=== PATIENT | female | born 1980 | race American Indian/Alaskan Native ===

== ENCOUNTER 2017-12-03 11:00 | Outpatient (CLI) | payer MEDICAID | END 2017-12-03 11:01 | disposition home or self-care (01) | LOC: SLR 11:00 | PROVIDERS: ATTEND Otolaryngology | DX: G47.30 Sleep apnea, unspecified (principal) | CPT/HCPCS: G0399 ==

== ENCOUNTER 2021-01-21 09:46 | Inpatient (IN) | payer MEDICAID, OTHER, SELFPAY ==
[2021-01-21] MEDS ORDERED: dexAMETHasone 20 MG/5 ML VIAL IV ONE (11:48)
--- NOTE | 2021-01-21 11:57 | Emergency Department Report ---
ED Shortness of Breath HPI - General Chief Complaint: Dyspnea/Respdistress Stated Complaint: SHORTNESS OF BREATH Time Seen by Provider: 01/21/21 11:47 Source: patient Mode of arrival: Ambulatory Limitations: No Limitations - History of Present Illness Initial Comments: CC: "I just can't breathe." HPI: This is a 40 yo female with hx of prediabetes, ANNIKA, obesity, possible PCOS who presents with shortness of breath and dry cough since Saturday. No sick c ontacts. However, patient does work with several employees. No fever. No wheezing. No loss of taste or smell. No leg pain. No recent travel. Severe shortness of breath with minimal exertion. Unable to walk short distance without shortness of breath. Oxygen saturation 77% in triage. SHe denies tobacco use. She lives with several family members. PCP Dr. Kowalski [facility] MD Complaint: shortness of breath, cough -: Gradual, days(s) (5 days) Severity: severe Consistency: constant Improves With: rest Worsens With: exertion Known History Of: other (obesity) Associated Symptoms: cough - Related Data Previous Rx's Medication Instructions Recorded Last Taken Type Ciprofloxacin HCl [Ciprofloxacin 500 mg PO Q12H #20 tab 08/25/14 Unknown Rx TAB] Allergies Allergy/AdvReac Type Severity Reaction Status Date / Time No Known Allergies Allergy Unverified 08/25/14 21:09 ED Review of Systems ROS: Stated complaint: SHORTNESS OF BREATH Other details as noted in HPI Comment: All other systems reviewed and negative Constitutional: denies: chills, fever, malaise ENT: denies: throat pain Respiratory: cough, shortness of breath. denies: wheezing Cardiovascular: denies: chest pain Gastrointestinal: denies: abdominal pain, nausea, diarrhea Skin: denies: rash Neurological: denies: headache ED Past Medical Hx - Past Medical History Previous Medical History?: Yes Hx Diabetes: Yes Additional medical history: PCOS - Surgical History Past Surgical History?: Yes Additional Surgical History: CS - Social History Smoking Status: Never Smoker Substance Use Type: None - Medications Home Medications: Home Medications Medication Instructions Recorded Confirmed Last Taken Type Ciprofloxacin HCl [Ciprofloxacin 500 mg PO Q12H #20 tab 08/25/14 Unknown Rx TAB] ED Physical Exam - General Limitations: No Limitations General appearance: alert, other (becomes out of breath while speaking in seated position) - Head Head exam: Present: atraumatic, normocephalic - Eye Eye exam: Present: normal appearance - ENT ENT exam: Present: mucous membranes moist - Neck Neck exam: Present: normal inspection, full ROM - Respiratory Respiratory exam: Present: decreased breath sounds. Absent: wheezes, rales, rhonchi - Cardiovascular Cardiovascular Exam: Present: regular rate, normal rhythm, normal heart sounds. Absent: systolic murmur, diastolic murmur, rubs, gallop - GI/Abdominal GI/Abdominal exam: Present: soft, normal bowel sounds. Absent: distended, tenderness, guarding, rebound - Extremities Exam Extremities exam: Present: normal inspection - Neurological Exam Neurological exam: Present: alert, oriented X3 - Psychiatric Psychiatric exam: Present: normal affect, normal mood - Skin Skin exam: Present: warm, dry, intact, normal color. Absent: rash ED Course Vital Signs 01/21/21 01/21/21 01/21/21 10:07 10:08 13:08 Temperature 97.7 F Pulse Rate 108 H Respiratory 20 Rate Blood Pressure Blood Pressure 134/92 [Right] O2 Sat by Pulse 77 L 92 94 Oximetry 01/21/21 01/21/21 01/21/21 13:16 13:46 14:00 Temperature Pulse Rate 105 H 104 H Respiratory 14 11 L Rate Blood Pressure 112/84 134/83 Blood Pressure [Right] O2 Sat by Pulse 94 91 90 Oximetry ED Medical Decision Making - Lab Data Result diagrams: 01/21/21 11:55 01/21/21 11:55 Laboratory Results - last 24 hr 01/21/21 01/21/21 01/21/21 11:55 11:55 11:55 WBC 8.3 RBC 5.09 H Hgb 14.9 H Hct 44.6 H MCV 88 MCH 29 MCHC 33 RDW 13.1 L Plt Count 231 Lymph % (Auto) 16.8 [place] % (Auto) 11.7 H Eos % (Auto) 0.0 Baso % (Auto) 0.9 Lymph # (Auto) 1.4 [place] # (Auto) 1.0 H Eos # (Auto) 0.0 Baso # (Auto) 0.1 Seg Neutrophils % 70.6 H Seg Neutrophils # 5.9 D-Dimer 591.99 H Sodium 138 Potassium 3.9 Chloride 96.2 L Carbon Dioxide 29 Anion Gap 17 BUN 7 Creatinine 0.6 Estimated GFR > 60 BUN/Creatinine Ratio 12 Glucose 341 H Calcium 8.6 Ferritin Total Bilirubin 0.60 AST 39 ALT 32 Alkaline Phosphatase 121 Lactate Dehydrogenase 563 H Troponin T 0.046 H C-Reactive Protein 19.80 H NT-Pro-B Natriuret Pep 19.46 Total Protein 7.2 Albumin 3.5 L Albumin/Globulin Ratio 0.9 Triglycerides 88 Cholesterol 122 LDL Cholesterol Direct 66 HDL Cholesterol 41 Cholesterol/HDL Ratio 2.97 Procalcitonin 01/21/21 01/21/21 11:55 11:55 WBC RBC Hgb Hct MCV MCH MCHC RDW Plt Count Lymph % (Auto) [place] % (Auto) Eos % (Auto) Baso % (Auto) Lymph # (Auto) [place] # (Auto) Eos # (Auto) Baso # (Auto) Seg Neutrophils % Seg Neutrophils # D-Dimer Sodium Potassium Chloride Carbon Dioxide Anion Gap BUN Creatinine Estimated GFR BUN/Creatinine Ratio Glucose Calcium Ferritin 580.8 H Total Bilirubin AST ALT Alkaline Phosphatase Lactate Dehydrogenase Troponin T C-Reactive Protein NT-Pro-B Natriuret Pep Total Protein Albumin Albumin/Globulin Ratio Triglycerides Cholesterol LDL Cholesterol Direct HDL Cholesterol Cholesterol/HDL Ratio Procalcitonin 0.07 - EKG Data -: EKG Interpreted by Sd EKG shows normal: sinus rhythm, axis, intervals Rate: tachycardia - EKG Data Interpretation: nonspecific ST-T wave sabina 01/21/21 13:05 EKG 1300 EKG interpreted by nj Sinus tachycardia rate 100 bpm normal axis normal intervals no ST elevation nonspecific T wave pattern - Radiology Data Radiology results: report reviewed Patient Name: WEI PAINTER Gender: Female Date of : 1980 Referring Provider: RADHA MACIAS Organization: [facility] Accession Number: [id number] Requested Date: January 21, 2021 13:36 Report Status: Final Requested Procedure: 1 Procedure Description: CT angio chest Modality: CT Findings Reporting MD: Dmitriy East Dictation Time: January 21, 2021 12:59 [place]: Not available Home Office Representative Date: CTA CHEST WITH CONTRAST INDICATION / CLINICAL INFORMATION: Elevated D-dimer Troponin, S.O.B. and dry cough, severe Hypoxia. TECHNIQUE: Axial CT images were obtained through the chest after injection of IV contrast. 3 plane MIP and/or 3D reconstructions were produced. All CT scans at this location are performed using CT dose reduction for ALARA by means of automated exposure control. COMPARISON: None available. FINDINGS: There are multifocal opacities with groundglass densities and rounded densities throughout bilateral lungs. Opacities are extensive. The main pulmonary arteries are patent. So the more peripheral pulmonary arteries are more difficult to evaluate due to bolus timing and degree of lung disease and opacification. Aorta and heart appear normal. A few mildly prominent paratracheal nodes are seen. No acute bone findings are identified. Fatty infiltration of the liver. IMPRESSION: 1. No central pulmonary artery embolism. The more peripheral pulmonary arteries not well evaluated due to extensive lung disease. 2. Extensive groundglass opacities with rounded and wedge-shaped densities throughout bilateral lungs. Findings could represent atypical infection such as Covid, pulmonary edema/infiltrate, nonspecific. Clinical correlation. 3. Fatty infiltration the liver. Signer Name: Dmitriy East MD Signed: 01/21/2021 12:59 PM Workstation Name: [id number] Patient Name: WEI PAINTER Gender: Female Date of : 1980 Referring Provider: RADHA MACIAS Organization: [facility] Accession Number: [id number] Requested Date: January 21, 2021 11:48 Report Status: Final Requested Procedure: 1 Procedure Description: XR chest 1V ap Modality: XR Findings Reporting MD: Wilder Wakefield Dictation Time: January 21, 2021 11:21 [place]: Not available Home Office Representative Date: CHEST 1 VIEW INDICATION: Dyspnea COMPARISON: None FINDINGS: Support devices: None Heart: Normal Lungs/Pleura: Patchy bilateral parenchymal disease, suggesting diffuse pneumonia. IMPRESSION: 1. Bilateral lung disease, suggesting pneumonia. Viral etiology should be considered. - Medical Decision Making 1. Acute respiratory failure hypoxia, oxygen saturation 77% room air. Multifocal pneumonia diagnosed per clinical exam and chest radiograph. Suspected COVID-19 infection. Droplet And contact precautions initiated in emergency department IV steroids and also initiated emergency department. Patient maintaining oxygen saturation with 4 L nasal cannula. IV ceftriaxone and azithromycin initiated emergency department. COVID-19 markers significantly elevated including: D-dimer, ferritin, LDH, CRP Both parents at home are vaccinated COVID-19 infection. 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 She has informed her 16-year-old son will watch for COVID-19 symptoms while under self isolated. 2. Type II NSTEMI: demand ischemia due to severe hyposix supportive care with aggressive COVID 19 treatment, aspirin ordered, Nonspecific T wave pattern on EKG without overt ischemia 3. Acute hyperglycemia due to new onset diabetes mellitus: patient will need outpatient management and education Critical care attestation.: If time is entered above; I have spent that time in minutes in the direct care of this critically ill patient, excluding procedure time. ED Disposition Clinical Impression: Acute respiratory failure with hypoxia, Suspected COVID-19 virus infection, Pneumonia due to COVID-19 virus, Non-STEMI (non-ST elevated myocardial infarction), Acute hyperglycemia, New onset type 2 diabetes mellitus Disposition: OP ADMIT IP TO THIS HOSP Is pt being admited?: Yes Does the pt Need Aspirin: No Condition: Fair Instructions: Diabetes Mellitus Type 2 in Adults (ED), Bacterial Pneumonia (ED) Referrals: PRIMARY CARE, [Primary Care Provider] - 3-5 Days
[2021-01-21 12:18] LABS: Basophils # (Auto) 0.1 K/mm3 (0.0-0.1); Basophils % (Auto) 0.9 % (0.0-1.8); Hematocrit 44.6 % (30.3-42.9); Hemoglobin 14.9 gm/dl (10.1-14.3); Lymphocytes # (Auto) 1.4 K/mm3 (1.2-5.4); Lymphocytes % (Auto) 16.8 % (13.4-35.0); Mean Corpuscular HGB Conc 33 % (30-34); Mean Corpuscular Volume 88 fl (79-97); Monocytes % (Auto) 11.7 % (0.0-7.3); Platelet Count 231 K/mm3 (140-440); Red Blood Count 5.09 M/mm3 (3.65-5.03); Red Cell Distribution Width 13.1 % (13.2-15.2)
--- NOTE | 2021-01-21 12:26 | XRay Report ---
CHEST 1 VIEW INDICATION: Dyspnea COMPARISON: None FINDINGS: Support devices: None Heart: Normal Lungs/Pleura: Patchy bilateral parenchymal disease, suggesting diffuse pneumonia. IMPRESSION: 1. Bilateral lung disease, suggesting pneumonia. Viral etiology should be considered. Signer Name: Wilder Wakefield MD Signed: 01/21/2021 12:21 PM Workstation Name: [id number]
[2021-01-21] MEDS ORDERED: AZITHROMYCIN/NS 500 MG/250 ML 500 MG/250 ML BAG IV ONE (12:40)
[2021-01-21] MEDS ORDERED: cefTRIAXone/NS 1 GM/50 ML 1 GM/50 ML BAG IV ONE (12:40)
[2021-01-21 12:41] LABS: Alanine Aminotransferase 32 units/L (7-56); Albumin 3.5 g/dL (3.9-5); BUN/Creatinine Ratio 12; Blood Urea Nitrogen 7 mg/dL (7-17); Calcium 8.6 mg/dL (8.4-10.2); Hemolysis Index 8
[2021-01-21 12:52] LABS: Chol/HDL Ratio 2.97 %; HDL Cholesterol 41 mg/dL (40-59); LDL Cholesterol,Direct 66 mg/dL (50-130)
--- NOTE | 2021-01-21 14:03 | Cat Scan Report ---
CTA CHEST WITH CONTRAST INDICATION / CLINICAL INFORMATION: Elevated D-dimer Troponin, S.O.B. and dry cough, severe Hypoxia. TECHNIQUE: Axial CT images were obtained through the chest after injection of IV contrast. 3 plane OR P and/or 3D reconstructions were produced. All CT scans at this location are performed using CT dose reduction for ALARA by means of automated exposure control. COMPARISON: None available. FINDINGS: There are multifocal opacities with groundglass densities and rounded densities throughout bilateral lungs. Opacities are extensive. The main pulmonary arteries are patent. So the more peripheral pulmonary arteries are more difficult to evaluate due to bolus timing and degree of lung disease and opacification. Aorta and heart appear normal. A few mildly prominent paratracheal nodes are seen. No acute bone findings are identified. Fa tty infiltration of the liver. IMPRESSION: 1. No central pulmonary artery embolism. The more peripheral pulmonary arteries not well evaluated du e to extensive lung disease. 2. Extensive groundglass opacities with rounded and wedge-shaped densities throughout bilateral lungs . Findings could represent atypical infection such as Covid, pulmonary edema/infiltrate, nonspecific. Clinical correlation. 3. Fatty infiltration the liver. Signer Name: Dmitriy East MD Signed: 01/21/2021 1:59 PM Workstation Name: [id number]
--- NOTE | 2021-01-21 15:15 | History and Physical Report ---
History of Present Illness Chief complaint: I just cannot breathe History of present illness: 40 YO Female with Obesity Hypoventilation Syndrome, DM, MO, PCOS, Metabolic Syndrome presents to ED for evaluation. Patient reports "I just cannot breathe". Patient states that she has experienced shortness of breath, decre ased exercise tolerance, malaise, body aches over the past 5 days with worsening symptoms over the same timeframe. Patient transported to [facility] via private vehicle for further care and evaluation of the aforementioned symptoms. Patient seen and evaluated in the emergency department. All lab and imaging studies reviewed. Patient found to have a pulse oximetry of 77% on room air with exertion which is consistent with acute hypoxemic respiratory failure. Patient underwent chest x-ray which revealed bilateral pneumonia. Patient admitted to medical floor and initiated on coronavirus protocol as well as pneumonia protocol. Patient denies fever, chills, chest pain, palpitation, productive cough, skin rash, recent ill contacts, unilateral leg swelling, calf pain, individual/family history of DVT/PE/bleeding/blood clotting disorders, or known exposure to COVID-19. No prior admission for review. No medication listed at time of admission for reconciliation. Past History Past Medical History: diabetes, other (See HPI) Past Surgical History: Social history: single. denies: smoking, alcohol abuse, prescription drug abuse Family history: diabetes, hypertension Medications and Allergies Allergies Allergy/AdvReac Type Severity Reaction Status Date / Time No Known Allergies Allergy Unverified 08/25/14 21:09 Home Medications Medication Instructions Recorded Confirmed Last Taken Type Ciprofloxacin HCl [Ciprofloxacin 500 mg PO Q12H #20 tab 08/25/14 Unknown Rx TAB] Review of Systems Constitutional: fatigue, weakness, malaise, no weight loss, no weight gain, no fever, no chills, no sweats Ears, nose, mouth and throat: no ear pain, no tinnitis, no nasal congestion, no nasal discharge Breasts: no change in shape, no swelling Cardiovascular: shortness of breath, no chest pain Respiratory: shortness of breath, no cough, no cough with sputum, no hemoptysis, no pleurisy, no pain Gastrointestinal: no nausea, no diarrhea, no hematemesis Genitourinary Female: no pelvic pain, no flank pain, no dysuria, no urinary frequency, no urgency Rectal: no pain, no incontinence, no bleeding Musculoskeletal: no neck stiffness, no neck pain, no shooting arm pain, no arm numbness/tingling Integumentary: no rash, no pruritis, no redness, no sores, no jaundice Neurological: no head injury, no paralysis, no weakness, no numbness, no seizures Psychiatric: no anxiety, no memory loss, no sleep disturbances, no hypersomnia, no suicidal ideation Endocrine: no cold intolerance, no heat intolerance, no polyphagia, no excessive thirst, no polyuria, no weight change Hematologic/Lymphatic: no easy bruising, no easy bleeding, no lymphadenopathy Allergic/Immunologic: no anaphylaxis Exam - Constitutional Vitals: Temp Pulse Resp BP Pulse Ox 97.7 F 104 H 11 L 134/83 90 01/21/21 10:07 01/21/21 14:00 01/21/21 14:00 01/21/21 14:00 01/21/21 14:00 General appearance: Present: mild distress, obese - EENT Eyes: Present: PERRL ENT: hearing intact, clear oral mucosa - Neck Neck: Present: supple, normal ROM - Respiratory Respiratory effort: labored, accessory muscle use Respiratory: bilateral: diminished, rhonchi - Cardiovascular Heart Sounds: Present: S1 & S2. Absent: rub, click - Extremities Extremities: pulses symmetrical, No edema Peripheral Pulses: within normal limits - Abdominal General gastrointestinal: Present: soft, non-tender, non-distended, normal bowel sounds Female genitourinary: Present: normal - Integumentary Integumentary: Present: clear, warm, dry - Musculoskeletal Musculoskeletal: gait normal, strength equal bilaterally - Psychiatric Psychiatric: appropriate mood/affect, intact judgment & insight - Neurologic Neurologic: CNII-XII intact, moves all extremities HEART Score - HEART Score Troponin: Troponin T 0.046 ng/mL (0.00-0.029) H 01/21/21 11:55 Results - Labs CBC & Chem 7: 01/21/21 11:55 01/21/21 11:55 Labs: Abnormal lab results 01/21/21 01/21/21 01/21/21 Range/Units 11:55 11:55 11:55 RBC 5.09 H (3.65-5.03) M/mm3 Hgb 14.9 H (10.1-14.3) gm/dl Hct 44.6 H (30.3-42.9) % RDW 13.1 L (13.2-15.2) % [place] % (Auto) 11.7 H (0.0-7.3) % [place] # (Auto) 1.0 H (0.0-0.8) K/mm3 Seg Neutrophils % 70.6 H (40.0-70.0) % D-Dimer 591.99 H (0-234) ng/mlDDU Chloride 96.2 L (98-107) mmol/L Glucose 341 H (65-100) mg/dL Ferritin (10.0-200.0) ng/mL Lactate Dehydrogenase 563 H (91-180) units/L Troponin T 0.046 H (0.00-0.029) ng/mL C-Reactive Protein 19.80 H (0.00-1.30) mg/dL Albumin 3.5 L (3.9-5) g/dL 01/21/21 Range/Units 11:55 RBC (3.65-5.03) M/mm3 Hgb (10.1-14.3) gm/dl Hct (30.3-42.9) % RDW (13.2-15.2) % [place] % (Auto) (0.0-7.3) % [place] # (Auto) (0.0-0.8) K/mm3 Seg Neutrophils % (40.0-70.0) % D-Dimer (0-234) ng/mlDDU Chloride (98-107) mmol/L Glucose (65-100) mg/dL Ferritin 580.8 H (10.0-200.0) ng/mL Lactate Dehydrogenase (91-180) units/L Troponin T (0.00-0.029) ng/mL C-Reactive Protein (0.00-1.30) mg/dL Albumin (3.9-5) g/dL Assessment and Plan - Patient Problems (1) Acute respiratory failure with hypoxia Current Visit: Yes Status: Acute Plan to address problem: Supplemental oxygen, pulse oximetry, nebulizer therapy, CT chest, noninvasive positive pressure ventilation as clinically indicated. If patient is unable to maintain pulse oximetry will consider high flow supplemental oxygen. (2) Pneumonia Current Visit: Yes Status: Acute Plan to address problem: Pneumonia protocol: Chest x-ray, CBC, CMP, IV antibiotic therapy, supplemental oxygen, pulse oximetry. Blood culture. (3) Suspected COVID-19 virus infection Current Visit: Yes Status: Acute Plan to address problem: Coronavirus protocol: Contact precautions, isolation precautions, IV antibiotic therapy, IV steroid therapy, vitamin C therapy, vitamin D therapy, zinc therapy, prone positioning while in bed, prophylactic anticoagulation. (4) Obesity hypoventilation syndrome Current Visit: Yes Status: Acute Plan to address problem: Balanced diet, increase physical activity at discharge, outpatient pulmonary follow-up for sleep study. (5) DVT prophylaxis Current Visit: Yes Status: Acute Plan to address problem: SCDs bilateral lower extremities while in bed, prophylactic anticoagulation
[2021-01-21] MEDS ORDERED: ACETAMINOPHEN 325 MG TAB PO PRN (15:16)
[2021-01-21] MEDS ORDERED: ALBUTEROL 2.5 MG/3 ML NEBU IH PRN (15:16)
[2021-01-21] MEDS ORDERED: ONDANSETRON 4 MG/2 ML INJ IV PRN (15:16)
[2021-01-21] MEDS: methylPREDNISolone Sod Succinate 40 MG/1 ML INJ IV SCH ×2 (19:06→23:20)
[2021-01-21] MEDS: FAMOTIDINE 20 MG TAB PO SCH (22:37)
[2021-01-21] MEDS: HEPARIN 5,000 UNIT/1 ML VIAL SUB-Q SCH (22:37)
[2021-01-21] MEDS: ZINC SULFATE 220 MG CAP PO SCH (22:37)
[2021-01-21] MEDS: ASCORBIC ACID 500 MG TAB PO SCH (22:37)
[2021-01-22] MEDS: cefTRIAXone/NS 2 GM/100 ML 2 GM/100 ML BAG IV SCH (02:07)
--- NOTE | 2021-01-22 08:35 | Progress Note ---
Assessment and Plan Assessment and Plan - Patient Problems (1) Acute respiratory failure with hypoxia Current Visit: Yes Status: Acute Plan to address problem: On 6 L nasal cannula oxygen (2) Pneumonia Current Visit: Yes Status: Acute Plan to address problem: Continue IV antibiotics (3) Suspected COVID-19 virus infection Current Visit: Yes Status: Acute Plan to address problem: Coronavirus PCR pending Patient on Solu-Medrol 40 every 8 ID not consulted yet (4) Obesity hypoventilation syndrome Current Visit: Yes Status: Acute Plan to address problem: Patient needs bariatric surgery as outpatient Patient will consult (5) DVT prophylaxis Current Visit: Yes Status: Acute Plan to address problem: SCDs bilateral lower extremities while in bed, prophylactic anticoagulation Subjective Date of service: 01/22/21 Principal diagnosis: Acute respiratory failure with hypoxia Interval history: 40 YO Female with Obesity Hypoventilation Syndrome, DM, MO, PCOS, Metabolic Syndrome presents to ED for evaluation. Patient reports "I just cannot breathe". Patient states that she has experienced shortness of breath, decreased exercise tolerance, malaise, body aches over the past 5 days with worsening symptoms over the same timeframe. Patient transported to [facility] via private vehicle for further care and evaluation of the aforementioned symptoms. Patient seen and evaluated in the emergency department. All lab and imaging studies reviewed. Patient found to have a pulse oximetry of 77% on room air with exertion which is consistent with acute hypoxemic respiratory failure. Patient underwent chest x-ray which revealed bilateral pneumonia. Patient a dmitted to medical floor and initiated on coronavirus protocol as well as pneumonia protocol. Patient denies fever, chills, chest pain, palpitation, productive cough, skin rash, recent ill contacts, unilateral leg swelling, calf pain, individual/family history of DVT/PE/bleeding/blood clotting disorders, or known exposure to COVID-19. No prior admission for review. No medication listed at time of admission for reconciliation. 01/22/2021 Patient symptomatically better On 6 L nasal cannula oxygen Coronavirus PCR pending Coronavirus PCR is a send out to [facility] Objective - Constitutional Vitals: Vital Signs - 12hr 01/21/21 01/21/21 01/21/21 20:41 20:51 21:00 Temperature Pulse Rate 109 H 104 H 105 H Respiratory 39 H 20 32 H Rate Blood Pressure 122/84 122/84 123/78 O2 Sat by Pulse 89 91 90 Oximetry 05/01/21 05/01/21 05/01/21 21:27 21:53 22:20 Temperature 100.4 F H Pulse Rate 107 H Respiratory 20 Rate Blood Pressure 125/86 123/78 133/82 O2 Sat by Pulse 85 99 Oximetry 01/21/21 01/21/21 01/21/21 22:30 22:40 22:50 Temperature Pulse Rate Respiratory Rate Blood Pressure 133/82 133/82 133/82 O2 Sat by Pulse 99 97 97 Oximetry 01/21/21 01/21/21 01/21/21 22:52 23:00 23:10 Temperature Pulse Rate Respiratory Rate Blood Pressure 119/74 119/74 O2 Sat by Pulse 87 96 99 Oximetry 01/21/21 01/21/21 01/21/21 23:20 23:30 23:40 Temperature Pulse Rate Respiratory Rate Blood Pressure 119/74 119/74 119/74 O2 Sat by Pulse 98 97 96 Oximetry 01/21/21 01/22/21 01/22/21 23:50 00:00 00:06 Temperature 98.6 F Pulse Rate 86 Respiratory 20 Rate Blood Pressure 119/74 103/70 103/70 O2 Sat by Pulse 96 94 95 Oximetry 01/22/21 01/22/21 01/22/21 00:10 00:20 00:30 Temperature Pulse Rate Respiratory Rate Blood Pressure 103/70 103/70 103/70 O2 Sat by Pulse 96 96 97 Oximetry 01/22/21 01/22/21 01/22/21 00:44 01:11 02:36 Temperature Pulse Rate 102 H Respiratory 18 20 Rate Blood Pressure 178/105 O2 Sat by Pulse 92 92 Oximetry 01/22/21 01/22/21 01/22/21 02:40 04:06 04:10 Temperature Pulse Rate Respiratory Rate Blood Pressure 103/70 165/89 165/89 O2 Sat by Pulse 99 96 97 Oximetry 01/22/21 01/22/21 01/22/21 04:20 04:30 04:40 Temperature Pulse Rate Respiratory Rate Blood Pressure 165/89 165/89 178/105 O2 Sat by Pulse 96 96 98 Oximetry 01/22/21 01/22/21 01/22/21 04:50 05:00 05:54 Temperature 98.2 F Pulse Rate 86 Respiratory 20 Rate Blood Pressure 178/105 143/78 131/84 O2 Sat by Pulse 97 97 98 Oximetry General appearance: Present: mild distress, well-nourished - EENT Eyes: PERRL, EOM intact ENT: hearing intact, clear oral mucosa Ears: bilateral: normal - Neck Neck: supple, normal ROM - Respiratory Respiratory effort: normal Respiratory: bilateral: CTA - Breasts Breasts: normal - Cardiovascular Heart rate: 78 Rhythm: regular Heart Sounds: Present: S1 & S2. Absent: gallop, rub Extremities: pulses intact, No edema, normal color, Full ROM - Gastrointestinal General gastrointestinal: Present: soft, non-tender, non-distended, normal bowel sounds - Genitourinary Female genitourinary: normal - Integumentary Integumentary: clear, warm, dry - Musculoskeletal Musculoskeletal: 1, strength equal bilaterally - Neurologic Neurologic: moves all extremities - Psychiatric Psychiatric: memory intact, appropriate mood/affect, intact judgment & insight - Labs CBC & Chem 7: 01/22/21 10:38 01/22/21 10:38 Labs: Abnormal lab results 01/21/21 01/21/21 01/21/21 Range/Units 11:55 11:55 11:55 RBC 5.09 H (3.65-5.03) M/mm3 Hgb 14.9 H (10.1-14.3) gm/dl Hct 44.6 H (30.3-42.9) % RDW 13.1 L (13.2-15.2) % [place] % (Auto) 11.7 H (0.0-7.3) % [place] # (Auto) 1.0 H (0.0-0.8) K/mm3 Seg Neutrophils % 70.6 H (40.0-70.0) % D-Dimer 591.99 H (0-234) ng/mlDDU Chloride 96.2 L (98-107) mmol/L Glucose 341 H (65-100) mg/dL Ferritin (10.0-200.0) ng/mL Lactate Dehydrogenase 563 H (91-180) units/L Troponin T 0.046 H (0.00-0.029) ng/mL C-Reactive Protein 19.80 H (0.00-1.30) mg/dL Albumin 3.5 L (3.9-5) g/dL 01/21/21 Range/Units 11:55 RBC (3.65-5.03) M/mm3 Hgb (10.1-14.3) gm/dl Hct (30.3-42.9) % RDW (13.2-15.2) % [place] % (Auto) (0.0-7.3) % [place] # (Auto) (0.0-0.8) K/mm3 Seg Neutrophils % (40.0-70.0) % D-Dimer (0-234) ng/mlDDU Chloride (98-107) mmol/L Glucose (65-100) mg/dL Ferritin 580.8 H (10.0-200.0) ng/mL Lactate Dehydrogenase (91-180) units/L Troponin T (0.00-0.029) ng/mL C-Reactive Protein (0.00-1.30) mg/dL Albumin (3.9-5) g/dL HEART Score - HEART Score Troponin: Troponin T 0.046 ng/mL (0.00-0.029) H 01/21/21 11:55
[2021-01-22] MEDS: methylPREDNISolone Sod Succinate 40 MG/1 ML INJ IV SCH ×3 (08:40→23:50)
[2021-01-22] MEDS: CHOLECALCIFEROL (VIT D3) 1000 UNIT (25 mcg) TAB PO SCH (09:18)
[2021-01-22] MEDS: FAMOTIDINE 20 MG TAB PO SCH ×2 (09:18→22:04)
[2021-01-22] MEDS: ZINC SULFATE 220 MG CAP PO SCH ×2 (09:18→22:04)
[2021-01-22] MEDS: HEPARIN 5,000 UNIT/1 ML VIAL SUB-Q SCH ×2 (09:18→22:04)
[2021-01-22] MEDS: ASCORBIC ACID 500 MG TAB PO SCH ×2 (09:18→22:04)
[2021-01-22 11:54] LABS: Basophils # (Auto) 0.1 K/mm3 (0.0-0.1); Basophils % (Auto) 0.6 % (0.0-1.8); Hematocrit 43.4 % (30.3-42.9); Hemoglobin 14.2 gm/dl (10.1-14.3); Lymphocytes # (Auto) 1.5 K/mm3 (1.2-5.4); Lymphocytes % (Auto) 15.3 % (13.4-35.0); Mean Corpuscular HGB Conc 33 % (30-34); Mean Corpuscular Volume 90 fl (79-97); Monocytes # (Auto) 0.9 K/mm3 (0.0-0.8); Platelet Count 277 K/mm3 (140-440); Red Blood Count 4.84 M/mm3 (3.65-5.03); Red Cell Distribution Width 13.1 % (13.2-15.2)
[2021-01-22 12:18] LABS: Blood Urea Nitrogen 17 mg/dL (7-17); Calcium 8.5 mg/dL (8.4-10.2); Hemolysis Index 2
[2021-01-22 12:23] LABS: BUN/Creatinine Ratio 28
[2021-01-22] MEDS: AZITHROMYCIN/NS 500 MG/250 ML 500 MG/250 ML BAG IV SCH (16:03)
[2021-01-23] MEDS: cefTRIAXone/NS 2 GM/100 ML 2 GM/100 ML BAG IV SCH (02:34)
[2021-01-23] MEDS: methylPREDNISolone Sod Succinate 40 MG/1 ML INJ IV SCH ×3 (08:00→23:04)
[2021-01-23] MEDS: ASCORBIC ACID 500 MG TAB PO SCH ×2 (09:44→22:03)
[2021-01-23] MEDS: ZINC SULFATE 220 MG CAP PO SCH ×2 (09:44→22:03)
[2021-01-23] MEDS: CHOLECALCIFEROL (VIT D3) 1000 UNIT (25 mcg) TAB PO SCH (09:44)
[2021-01-23] MEDS: FAMOTIDINE 20 MG TAB PO SCH ×2 (09:44→22:03)
[2021-01-23] MEDS: HEPARIN 5,000 UNIT/1 ML VIAL SUB-Q SCH ×2 (09:45→22:03)
[2021-01-23] MEDS: AZITHROMYCIN/NS 500 MG/250 ML 500 MG/250 ML BAG IV SCH (13:58)
[2021-01-24] MEDS: cefTRIAXone/NS 2 GM/100 ML 2 GM/100 ML BAG IV SCH (03:04)
--- NOTE | 2021-01-24 06:36 | Progress Note ---
Assessment and Plan Assessment and Plan - Patient Problems (1) Acute respiratory failure with hypoxia Current Visit: Yes Status: Acute Plan to address problem: On 6 L nasal cannula oxygen (2) Pneumonia Current Visit: Yes Status: Acute Plan to address problem: Continue IV antibiotics (3) Suspected COVID-19 virus infection Current Visit: Yes Status: Acute Plan to address problem: Coronavirus PCR pending Patient on Solu-Medrol 40 every 8 ID not consulted yet (4) Obesity hypoventilation syndrome Current Visit: Yes Status: Acute Plan to address problem: Patient needs bariatric surgery as outpatient Patient will be counseled regarding follow-up with Dr. King as outpatient Plan to address problem: SCDs bilateral lower extremities while in bed, prophylactic anticoagulation DVT prophylaxis On Lovenox and GI prophylaxis Subjective Date of service: 01/23/21 Principal diagnosis: Acute respiratory failure with hypoxia Interval history: 40 YO Female with Obesity Hypoventilation Syndrome, DM, MO, PCOS, Metabolic Sy ndrome presents to ED for evaluation. Patient reports "I just cannot breathe". Patient states that she has experienced shortness of breath, decreased exercise tolerance, malaise, body aches over the past 5 days with worsening symptoms over the same timeframe. Patient transported to [facility] via private vehicle for further care and evaluation of the aforementioned symptoms. Patient seen and evaluated in the emergency department. All lab and imaging studies reviewed. Patient found to have a pulse oximetry of 77% on room air with exertion which is consistent with acute hypoxemic respiratory failure. Patient underwent chest x- ray which revealed bilateral pneumonia. Patient admitted to medical floor and initiated on coronavirus protocol as well as pneumonia protocol. Patient denies fever, chills, chest pain, palpitation, productive cough, skin rash, recent ill contacts, unilateral leg swelling, calf pain, individual/family history of DVT/PE/bleeding/blood clotting disorders, or known exposure to COVID-19. No prior admission for review. No medication listed at time of admission for r econciliation. 01/22/2021 Patient symptomatically better On 6 L nasal cannula oxygen Coronavirus PCR pending Coronavirus PCR is a send out to [facility] 01/23/2021 Patient on 6 L nasal cannula oxygen Otherwise comfortable Coronavirus PCR status still pending because of it being a send out to [place] Objective - Constitutional Vitals: Vital Signs - 12hr 01/23/21 01/23/21 01/23/21 20:33 20:53 22:15 Temperature 98.2 F Pulse Rate 82 Respiratory 20 20 Rate Blood Pressure 137/84 O2 Sat by Pulse 96 93 Oximetry 01/24/21 00:00 Temperature Pulse Rate 87 Respiratory 20 Rate Blood Pressure O2 Sat by Pulse 95 Oximetry General appearance: Present: no acute distress, well-nourished - EENT Eyes: PERRL, EOM intact ENT: hearing intact, clear oral mucosa Ears: bilateral: normal - Neck Neck: supple, normal ROM - Respiratory Respiratory effort: normal Respiratory: bilateral: CTA - Breasts Breasts: normal - Cardiovascular Heart rate: 78 Rhythm: regular Heart Sounds: Present: S1 & S2. Absent: gallop, rub Extremities: pulses intact, No edema, normal color, Full ROM - Gastrointestinal General gastrointestinal: Present: soft, non-tender, non-distended, normal bowel sounds - Genitourinary Female genitourinary: normal - Integumentary Integumentary: clear, warm, dry - Musculoskeletal Musculoskeletal: 1, strength equal bilaterally - Neurologic Neurologic: moves all extremities - Psychiatric Psychiatric: memory intact, appropriate mood/affect, intact judgment & insight - Labs CBC & Chem 7: 01/22/21 10:38 01/22/21 10:38 HEART Score - HEART Score Troponin: Troponin T 0.046 ng/mL (0.00-0.029) H 01/21/21 11:55
[2021-01-24] MEDS: methylPREDNISolone Sod Succinate 40 MG/1 ML INJ IV SCH ×3 (08:00→23:13)
--- NOTE | 2021-01-24 09:10 | Progress Note ---
Assessment and Plan Assessment and plan: Acute respiratory failure with hypoxia On 6 L nasal cannula oxygen Intermittent BiPAP, wean as tolerated Home O2 evaluation upon discharge --Pneumonia On IV antibiotics. Procalcitonin level is low No evidence of pneumonia, DC antibiotics --Suspected COVID-19 virus infection Coronavirus PCR sent, repeat pending Patient on Solu-Medrol 40 every 8 ID consult if positive --Obesity BMI 52.8. Patient needs weight reduction , diet modification Lifestyle changes , exercise as tolerated and weight reduction ,patient needs bariatric surgery evaluation Patient will be counseled regarding follow-up with Dr. King as outpatient DVT prophylaxis SCDs Lovenox Closely monitor patient and adjust management as needed Follow king PCR test report, if positive consult ID Plan of care reviewed with the patient and her nurse Brief history; 40 YO Female with Obesity Hypoventilation Syndrome, DM, MO, PCOS, Metabolic Syndrome presents to ED for evaluation. Patient reports "I just cannot breathe". Patient states that she has experienced shortness of breath, decrea sed exercise tolerance, malaise, body aches over the past 5 days with worsening symptoms over the same timeframe. Patient transported to [facility] via private vehicle for further care and evaluation of the aforementioned symptoms. Patient seen and evaluated in the emergency department. All lab and imaging studies reviewed. Patient found to have a pulse oximetry of 77% on room air with exertion which is consistent with acute hypoxemic respiratory failure. Patient underwent chest x-ray which revealed bilateral pneumonia. Patient admitted to medical floor and initiated on coronavirus protocol as well as pneumonia protocol. Patient denies fever, chills, chest pain, palpitation, productive cough, skin rash, recent ill contacts, unilateral leg swelling, calf pain, individual/family history of DVT/PE/bleeding/blood clotting disorders, or known exposure to COVID-19. No prior admission for review. No medication listed at time of admission for reconciliation. 01/24/2021; admitted as PUI, king PCR test sent, pending report Continue supportive care History Interval history: I have seen and examined the patient at the bedside this morning Patient's chart and medications reviewed Patient admitted as PUI, on isolation King PCR test is sent pending report Patient feels slightly better Mild shortness of breath Vital signs noted Hospitalist Physical - Constitutional Vitals: Temp Pulse Resp BP Pulse Ox 98.3 F 72 18 121/77 99 01/24/21 04:44 01/24/21 04:44 01/24/21 04:44 01/24/21 04:44 01/24/21 04:44 General appearance: Present: no acute distress, well-nourished - EENT Eyes: Present: PERRL, EOM intact - Neck Neck: Present: supple, normal ROM - Respiratory Respiratory effort: normal, labored Respiratory: right: CTA, diminished, rales, rhonchi, wheezing HEART Score - HEART Score Troponin: Troponin T 0.046 ng/mL (0.00-0.029) H 01/21/21 11:55 Results - Labs CBC & Chem 7: 01/22/21 10:38 01/22/21 10:38 Labs: Laboratory Last Values WBC 9.6 K/mm3 (4.5-11.0) 01/22/21 10:38 RBC 4.84 M/mm3 (3.65-5.03) 01/22/21 10:38 Hgb 14.2 gm/dl (10.1-14.3) 01/22/21 10:38 Hct 43.4 % (30.3-42.9) H 01/22/21 10:38 MCV 90 fl (79-97) 01/22/21 10:38 MCH 29 pg (28-32) 01/22/21 10:38 MCHC 33 % (30-34) 01/22/21 10:38 RDW 13.1 % (13.2-15.2) L 01/22/21 10:38 Plt Count 277 K/mm3 (140-440) 01/22/21 10:38 Lymph % (Auto) 15.3 % (13.4-35.0) 01/22/21 10:38 [place] % (Auto) 9.0 % (0.0-7.3) H 01/22/21 10:38 Eos % (Auto) 0.0 % (0.0-4.3) 01/22/21 10:38 Baso % (Auto) 0.6 % (0.0-1.8) 01/22/21 10:38 Lymph # (Auto) 1.5 K/mm3 (1.2-5.4) 01/22/21 10:38 [place] # (Auto) 0.9 K/mm3 (0.0-0.8) H 01/22/21 10:38 Eos # (Auto) 0.0 K/mm3 (0.0-0.4) 01/22/21 10:38 Baso # (Auto) 0.1 K/mm3 (0.0-0.1) 01/22/21 10:38 Seg Neutrophils % 75.1 % (40.0-70.0) H 01/22/21 10:38 Seg Neutrophils # 7.2 K/mm3 (1.8-7.7) 01/22/21 10:38 D-Dimer 591.99 ng/mlDDU (0-234) H 01/21/21 11:55 Sodium 135 mmol/L (137-145) L 01/22/21 10:38 Potassium 4.8 mmol/L (3.6-5.0) D 01/22/21 10:38 Chloride 95.4 mmol/L (98-107) L 01/22/21 10:38 Carbon Dioxide 24 mmol/L (22-30) 01/22/21 10:38 Anion Gap 20 mmol/L 01/22/21 10:38 BUN 17 mg/dL (7-17) 01/22/21 10:38 Creatinine 0.6 mg/dL (0.6-1.2) 01/22/21 10:38 Estimated GFR > 60 ml/min 01/22/21 10:38 BUN/Creatinine Ratio 28 % 01/22/21 10:38 Glucose 442 mg/dL (65-100) H 01/22/21 10:38 Calcium 8.5 mg/dL (8.4-10.2) 01/22/21 10:38 Ferritin 580.8 ng/mL (10.0-200.0) H 01/21/21 11:55 Total Bilirubin 0.60 mg/dL (0.1-1.2) 01/21/21 11:55 AST 39 units/L (5-40) 01/21/21 11:55 ALT 32 units/L (7-56) 01/21/21 11:55 Alkaline Phosphatase 121 units/L (35-129) 01/21/21 11:55 Lactate Dehydrogenase 563 units/L (91-180) H 01/21/21 11:55 Troponin T 0.046 ng/mL (0.00-0.029) H 01/21/21 11:55 C-Reactive Protein 19.80 mg/dL (0.00-1.30) H 01/21/21 11:55 NT-Pro-B Natriuret Pep 19.46 pg/mL (0-450) 01/21/21 11:55 Total Protein 7.2 g/dL (6.3-8.2) 01/21/21 11:55 Albumin 3.5 g/dL (3.9-5) L 01/21/21 11:55 Albumin/Globulin Ratio 0.9 % 01/21/21 11:55 Triglycerides 88 mg/dL (2-149) 01/21/21 11:55 Cholesterol 122 mg/dL (50-199) 01/21/21 11:55 LDL Cholesterol Direct 66 mg/dL (50-130) 01/21/21 11:55 HDL Cholesterol 41 mg/dL (40-59) 01/21/21 11:55 Cholesterol/HDL Ratio 2.97 % 01/21/21 11:55 Procalcitonin 0.07 ng/mL (<0.15) 01/21/21 11:55 Microbiology: Microbiology 01/21/21 12:03 Peripheral/Venous Blood Culture - Preliminary NO GROWTH AFTER 48 HOURS 01/21/21 11:55 Peripheral/Venous Blood Culture - Preliminary NO GROWTH AFTER 48 HOURS Santiago/IV: Voiding Method Toilet Active Medications - Current Medications Current Medications: Generic Name Dose Route Start Last Admin Trade Name Freq PRN Reason Stop Dose Admin Acetaminophen 650 mg 01/21/21 15:16 Acetaminophen 325 Mg Tab PO Q4H PRN Pain MILD(1-3)/Fever >100.5/ALVARADO Albuterol 2.5 mg 01/21/21 15:16 Albuterol 2.5 Mg/3 Ml Nebu IH Q4HRT PRN Shortness Of Breath Ascorbic Acid 500 mg 01/21/21 22:00 01/23/21 22:03 Ascorbic Acid 500 Mg Tab PO 500 mg BID NOEMI Administration Cholecalciferol 1,000 unit 01/22/21 10:00 01/23/21 09:44 Cholecalciferol (Vit D3) 1000 Unit (25 Mcg) Tab PO 1,000 unit QDAY NOEMI Administration Famotidine 20 mg 01/21/21 22:00 01/23/21 22:03 Famotidine 20 Mg Tab PO 20 mg BID NOEMI Administration Heparin Sodium (Porcine) 5,000 unit 01/21/21 22:00 01/23/21 22:03 Heparin 5,000 Unit/1 Ml Vial SUB-Q 5,000 unit Q12HR NOEMI Administration Ceftriaxone Sodium 2 gm in 100 mls @ 200 mls/hr 01/22/21 02:00 01/24/21 03:04 Rocephin/Ns 2 Gm/100 Ml IV 200 mls/hr Q24H NOEMI Administration Protocol Azithromycin 500 mg in 250 mls @ 250 mls/hr 01/22/21 14:00 01/23/21 13:58 Zithromax/Ns IV 250 mls/hr Q24H NOEMI Administration Protocol Methylprednisolone Sodium Succinate 40 mg 01/21/21 16:00 01/23/21 23:04 Methylprednisolone Sod Succinate 40 Mg/1 Ml Inj IV 40 mg Q8H NOEMI Administration Ondansetron HCl 4 mg 01/21/21 15:16 Ondansetron 4 Mg/2 Ml Inj IV Q8H PRN Nausea And Vomiting Sodium Chloride 10 ml 01/21/21 22:00 01/23/21 22:05 Sodium Chloride 0.9% 10 Ml Flush Syringe IV 10 ml BID NOEMI Administration Sodium Chloride 10 ml 01/21/21 15:16 Sodium Chloride 0.9% 10 Ml Flush Syringe IV PRN PRN LINE FLUSH Zinc Sulfate 220 mg 01/21/21 22:00 01/23/21 22:03 Zinc Sulfate 220 Mg Cap PO 220 mg BID NOEMI Administration
[2021-01-24] MEDS: ZINC SULFATE 220 MG CAP PO SCH ×2 (10:11→21:34)
[2021-01-24] MEDS: CHOLECALCIFEROL (VIT D3) 1000 UNIT (25 mcg) TAB PO SCH (10:11)
[2021-01-24] MEDS: FAMOTIDINE 20 MG TAB PO SCH ×2 (10:11→21:34)
[2021-01-24] MEDS: ASCORBIC ACID 500 MG TAB PO SCH ×2 (10:11→21:34)
[2021-01-24] MEDS: HEPARIN 5,000 UNIT/1 ML VIAL SUB-Q SCH ×2 (10:13→21:34)
--- NOTE | 2021-01-24 12:48 | Electrocardiograph Report ---
[facility] Test Date: 2021-01-21 Test Time: 13:00:59 Pat Name: WEI PAINTER Department: Room: A368 1 Gender: F Shipping Receiving Clerk: CHARO : 1980 Requested By: RADHA MACIAS Order Number: [id number] Reading MD: Hector Platt Measurements Intervals [place] Rate: 103 P: 37 WA: 147 QRS: 24 QRSD: 104 T: 5 QT: 342 QTc: 449 Interpretive Statements Sinus tachycardia Borderline T abnormalities, diffuse leads No previous ECG available for comparison Electronically Signed On 01-24-2021 12:48:40 EDT by Hector Platt
[2021-01-24] MEDS: AZITHROMYCIN/NS 500 MG/250 ML 500 MG/250 ML BAG IV SCH (14:00)
[2021-01-24] MEDS ORDERED: TOCILIZUMAB 800 MG in SODIUM CHLORIDE 0.9% 100 ML IV ONE (14:01)
--- NOTE | 2021-01-24 14:05 | Consultation ---
History of Present Illness - Reason for Consult Consult date: 01/24/21 Possible COVID Requesting physician: SANDY JOHNSTON - History of Present Illness The patient is a 40-year-old female with obesity hypoventilation, diabetes, morbid obesity was admitted to the hospital with worsening shortness of breath over the last 5 days. Upon evaluation in the ER, noted to be hypoxic with oxygen saturations of 77% on room air. She tested positive for COVID-19. Inf ectious diseases was consulted for additional evaluation. On empiric abx. Labs reviewed, d-dimer 591, ferritin 580, LDH 563, procalcitonin 0.07, CRP 19.8 Review of Systems: reviewed in the chart, unable to obtain, minimize risk of transmission Past History Past Medical History: diabetes, other (See HPI) Past Surgical History: Social history: single. denies: smoking, alcohol abuse, prescription drug abuse Family history: diabetes, hypertension Medications and Allergies Allergies Allergy/AdvReac Type Severity Reaction Status Date / Time No Known Allergies Allergy Unverified 08/25/14 21:09 Home Medications Medication Instructions Recorded Confirmed Last Taken Type Ciprofloxacin HCl [Ciprofloxacin 500 mg PO Q12H #20 tab 08/25/14 01/23/21 Unknown Rx TAB] Active Meds: Active Medications Acetaminophen (Acetaminophen 325 Mg Tab) 650 mg PO Q4H PRN PRN Reason: Pain MILD(1-3)/Fever >100.5/ALVARADO Albuterol (Albuterol 2.5 Mg/3 Ml Nebu) 2.5 mg IH Q4HRT PRN PRN Reason: Shortness Of Breath Ascorbic Acid (Ascorbic Acid 500 Mg Tab) 500 mg PO BID [facility] Last Admin: 01/24/21 10:11 Dose: 500 mg Documented by: Cholecalciferol (Cholecalciferol (Vit D3) 1000 Unit (25 Mcg) Tab) 1,000 unit PO QDAY [facility] Last Admin: 01/24/21 10:11 Dose: 1,000 unit Documented by: Famotidine (Famotidine 20 Mg Tab) 20 mg PO BID [facility] Last Admin: 01/24/21 10:11 Dose: 20 mg Documented by: Heparin Sodium (Porcine) (Heparin 5,000 Unit/1 Ml Vial) 5,000 unit SUB-Q Q12HR [facility] Last Admin: 01/24/21 10:13 Dose: 5,000 unit Documented by: Ceftriaxone Sodium (Rocephin/Ns 2 Gm/100 Ml) 2 gm in 100 mls @ 200 mls/hr IV Q24H [facility]; Protocol Last Admin: 01/24/21 03:04 Dose: 200 mls/hr Documented by: Azithromycin (Zithromax/Ns) 500 mg in 250 mls @ 250 mls/hr IV Q24H [facility]; Protocol Last Admin: 01/23/21 13:58 Dose: 250 mls/hr Documented by: REMDESIVIR 200 mg/ Sodium (Chloride) 250 mls @ 500 mls/hr IV ONCE ONE Stop: 01/24/21 14:30 REMDESIVIR 100 mg/ Sodium (Chloride) 250 mls @ 500 mls/hr IV Q24HR@2100 [facility] Stop: 01/28/21 21:29 TOCILIZUMAB 800 mg/ Sodium (Chloride) 140 mls @ 120 mls/hr IV ONCE ONE Stop: 01/24/21 15:10 Methylprednisolone Sodium Succinate (Methylprednisolone Sod Succinate 40 Mg/1 Ml Inj) 40 mg IV Q8H [facility] Last Admin: 01/24/21 08:00 Dose: 40 mg Documented by: Ondansetron HCl (Ondansetron 4 Mg/2 Ml Inj) 4 mg IV Q8H PRN PRN Reason: Nausea And Vomiting Sodium Chloride (Sodium Chloride 0.9% 10 Ml Flush Syringe) 10 ml IV BID [facility] Last Admin: 01/24/21 10:11 Dose: 10 ml Documented by: Sodium Chloride (Sodium Chloride 0.9% 10 Ml Flush Syringe) 10 ml IV PRN PRN PRN Reason: LINE FLUSH Sodium Chloride (Sodium Chloride 0.9% 50 Ml Ivpb) 50 ml IV Q24HR@2100 [facility] Stop: 01/28/21 21:01 Zinc Sulfate (Zinc Sulfate 220 Mg Cap) 220 mg PO BID [facility] Last Admin: 01/24/21 10:11 Dose: 220 mg Documented by: Physical Examination - Physical Exam Narrative exam: Physical Exam (reviewed in chart to minimize risk of transmission) Constitutional: deferred Head, Ears, Nose: deferred Eyes: deferred Neck: deferred Oral: deferred Cardiovascular: deferred Respiratory: deferred GI: deferred Musculoskeletal: deferred Skin: deferred Hem/Lymphatic: deferred Psych: deferred Neurological: deferred - Constitutional Vitals: Vital Signs Temp Pulse Resp BP Pulse Ox 97.8 F 61 20 132/83 93 01/24/21 11:04 01/24/21 11:04 01/24/21 11:04 01/24/21 11:04 01/24/21 11:04 Temperature -Last 24 Hours Temperature 97.8 F Temperature 98.3 F Temperature 98.2 F Temperature 98.3 F Results - Labs CBC & Chem 7: 01/22/21 10:38 01/22/21 10:38 Labs: Abnormal lab results 01/22/21 Range/Units 09:49 Coronavirus (PCR) Positive A (Negative) - Imaging and Cardiology Chest x-ray: report reviewed, image reviewed (b/l pneumonia) CT scan - chest: report reviewed Assessment and Plan Cultures: SARS CoV2 PCR: Positive 01/21/2021 blood culture: No growth A/P: 40-year-old female with obesity hypoventilation, diabetes, morbid obesity: #Bilateral pneumonia: Secondary to COVID-19. Severe disease. CTA negative for PE #Acute hypoxic respiratory failure: On high flow nasal cannula #Morbid obesity Recs: -Continue steroids for 10 days, agree with higher dose due to morbid obesity -Actemra and remdesivir ordered -Antibiotics discontinued -prophylactic anticoagulation based on d-dimer per hospital protocol -trend ferritin, LDH, d-dimer, CRP every 2-3 days for risk stratification and to assess disease progression Florence Whitaker MD, FACP [facility] ([facility] O: [phone] F: [phone]
[2021-01-24] MEDS: SODIUM CHLORIDE 0.9% 50 ML IVPB IV SCH (14:50)
[2021-01-24] MEDS ORDERED: REMDESIVIR 200 MG in SODIUM CHLORIDE 0.9% 250ML 250 ML IV ONE (15:00)
[2021-01-24] MEDS ORDERED: REMDESIVIR 100 MG VIAL IV ONE (15:00)
[2021-01-24 22:40] LABS: C-Reactive Protein 4.4 mg/dL (0.00-1.30)
[2021-01-25] MEDS: methylPREDNISolone Sod Succinate 40 MG/1 ML INJ IV SCH ×3 (08:23→22:51)
[2021-01-25] MEDS: FAMOTIDINE 20 MG TAB PO SCH ×2 (09:10→21:40)
[2021-01-25] MEDS: ASCORBIC ACID 500 MG TAB PO SCH ×2 (09:10→21:40)
[2021-01-25] MEDS: ZINC SULFATE 220 MG CAP PO SCH ×2 (09:10→21:41)
[2021-01-25] MEDS: HEPARIN 5,000 UNIT/1 ML VIAL SUB-Q SCH ×2 (09:10→21:41)
[2021-01-25] MEDS: CHOLECALCIFEROL (VIT D3) 1000 UNIT (25 mcg) TAB PO SCH (09:10)
[2021-01-25 09:45] LABS: Hematocrit 43.8 % (30.3-42.9); Hemoglobin 14.5 gm/dl (10.1-14.3); Mean Corpuscular HGB Conc 33 % (30-34); Mean Corpuscular Volume 88 fl (79-97); Platelet Count 352 K/mm3 (140-440); Red Blood Count 4.99 M/mm3 (3.65-5.03); Red Cell Distribution Width 13.2 % (13.2-15.2)
[2021-01-25 09:59] LABS: Alanine Aminotransferase 20 units/L (7-56); Albumin 3.4 g/dL (3.9-5); Blood Urea Nitrogen 27 mg/dL (7-17); Calcium 8.6 mg/dL (8.4-10.2); Hemolysis Index 10
[2021-01-25 10:02] LABS: BUN/Creatinine Ratio 39
--- NOTE | 2021-01-25 10:25 | Progress Note ---
Assessment and Plan Assessment and plan: Type 2 diabetes mellitus ; Patient is noncompliant with meds and diet for many months Not on medications, check A1c Sugars are high uncontrolled Accu-Chek sliding scale coverage ADA diet Long-acting insulin Novolin 70/30 Diabetic education, diabetic nutrition education Possible home health nurse for disease monitoring at discharge positive COVID-19 test Alvarado PCR test is positive Continue isolation ID consulted Management per COVID-19 protocols. Steroids, remdesivir, Actemra if needed Hypoxia supplemental oxygen evaluation Home O2 evaluation upon discharge Inflammatory markers We will monitor closely and adjust management as needed Plan of care discussed with the patient and her nurse Acute respiratory failure with hypoxia On 6 L nasal cannula oxygen Intermittent BiPAP, wean as tolerated Home O2 evaluation upon discharge Pneumonia On IV antibiotics. Procalcitonin level is low No evidence of pneumonia, DC antibiotics Obesity BMI 52.8. Patient needs weight reduction , diet modification Lifestyle changes , exercise as tolerated and weight reduction ,patient needs bariatric surgery evaluation Patient will be counseled regarding follow-up with Dr. King as outpatient DVT prophylaxis ; Heparin subcu/SCDs Medical noncompliance Patient strongly advised to comply with medications, diet, follow-up visits, home health nurse Closely monitor patient and adjust management as needed Follow alvarado PCR test report, if positive consult ID Plan of care reviewed with the patient and her nurse Brief history; 40 YO Female with Obesity Hypoventilation Syndrome, DM, MO, PCOS, Metabolic Syndrome presents to ED for evaluation. Patient reports "I just cannot breathe". Patient states that she has experienced shortness of breath, decreased exercise tolerance, malaise, body aches over the past 5 days with worsening symptoms over the same timeframe. Patient transported to [facility] via private vehicle for further care and evaluation of the aforementioned symptoms. Patient seen and evaluated in the emergency department. All lab and imaging studies reviewed. Patient found to have a pulse oximetry of 77% on room air with exertion which is consistent with acute hypoxemic respiratory failure. Patient underwent chest x-ray which revealed bilateral pneumonia. Patient admitted to medical floor and initiated on coronavirus protocol as well as pneumonia protocol. Patient denies fever, chills, chest pain, palpitation, productive cough, skin rash, recent ill contacts, unilateral leg swelling, calf pain, individual/family history of DVT/PE/bleeding/blood clotting disorders, or known exposure to COVID-19. No prior admission for review. No medication listed at time of admission for reconciliation. 01/24/2021; admitted as PUI, alvarado PCR test sent, pending report Continue supportive care 01/25/2021; patient's blood sugars are uncontrolled, noncompliant with medications for many years Accu-Chek sliding scale coverage ADA diet, Novolin 70/30 start low and increase as needed Check A1c, home health nurse at discharge, diabetic education and diabetic diet Disposition; closely monitor, follow consultants recommendation, discharged with home health when stable History Interval history: I have seen and examined the patient at the bedside this morning Patient's chart and medications reviewed, Covid positive patient on contact and droplet isolation I followed strict isolation precautions and PPE protocols per COVID-19 guidelines while evaluating the patient Patient's blood sugars are uncontrolled Patient feels slightly better Vital signs noted Hospitalist Physical - Constitutional Vitals: Temp Pulse Resp BP Pulse Ox 97.7 F 62 20 126/71 97 01/25/21 03:24 01/25/21 03:24 01/25/21 03:24 01/25/21 03:24 01/25/21 03:24 General appearance: Present: no acute distress, well-nourished, obese (Morbidly obese) - EENT Eyes: Present: PERRL, EOM intact - Neck Neck: Present: supple, normal ROM - Respiratory Respiratory effort: normal Respiratory: bilateral: diminished, negative: rales, rhonchi, wheezing - Cardiovascular Rhythm: regular Heart Sounds: Present: S1 & S2 - Extremities Extremities: no ischemia, No edema - Abdominal General gastrointestinal: soft, non-tender, non-distended, normal bowel sounds - Integumentary Integumentary: Present: clear, warm - Psychiatric Psychiatric: appropriate mood/affect, cooperative - Neurologic Neurologic: moves all extremities HEART Score - HEART Score Troponin: Troponin T 0.046 ng/mL (0.00-0.029) H 01/21/21 11:55 Results - Labs CBC & Chem 7: 01/25/21 09:00 01/25/21 09:00 Labs: Laboratory Last Values WBC 7.2 K/mm3 (4.5-11.0) 01/25/21 09:00 RBC 4.99 M/mm3 (3.65-5.03) 01/25/21 09:00 Hgb 14.5 gm/dl (10.1-14.3) H 01/25/21 09:00 Hct 43.8 % (30.3-42.9) H 01/25/21 09:00 MCV 88 fl (79-97) 01/25/21 09:00 MCH 29 pg (28-32) 01/25/21 09:00 MCHC 33 % (30-34) 01/25/21 09:00 RDW 13.2 % (13.2-15.2) 01/25/21 09:00 Plt Count 352 K/mm3 (140-440) 01/25/21 09:00 Lymph % (Auto) 15.3 % (13.4-35.0) 01/22/21 10:38 [place] % (Auto) 9.0 % (0.0-7.3) H 01/22/21 10:38 Eos % (Auto) 0.0 % (0.0-4.3) 01/22/21 10:38 Baso % (Auto) 0.6 % (0.0-1.8) 01/22/21 10:38 Lymph # (Auto) 1.5 K/mm3 (1.2-5.4) 01/22/21 10:38 [place] # (Auto) 0.9 K/mm3 (0.0-0.8) H 01/22/21 10:38 Eos # (Auto) 0.0 K/mm3 (0.0-0.4) 01/22/21 10:38 Baso # (Auto) 0.1 K/mm3 (0.0-0.1) 01/22/21 10:38 Seg Neutrophils % 75.1 % (40.0-70.0) H 01/22/21 10:38 Seg Neutrophils # 7.2 K/mm3 (1.8-7.7) 01/22/21 10:38 D-Dimer 310.36 ng/mlDDU (0-234) H 01/24/21 18:23 Sodium 135 mmol/L (137-145) L 01/25/21 09:00 Potassium 5.5 mmol/L (3.6-5.0) H 01/25/21 09:00 Chloride 95.7 mmol/L (98-107) L 01/25/21 09:00 Carbon Dioxide 23 mmol/L (22-30) 01/25/21 09:00 Anion Gap 22 mmol/L 01/25/21 09:00 BUN 27 mg/dL (7-17) H 01/25/21 09:00 Creatinine 0.7 mg/dL (0.6-1.2) 01/25/21 09:00 Estimated GFR > 60 ml/min 01/25/21 09:00 BUN/Creatinine Ratio 39 % 01/25/21 09:00 Glucose 528 mg/dL (65-100) H* 01/25/21 09:00 Calcium 8.6 mg/dL (8.4-10.2) 01/25/21 09:00 Magnesium 2.40 mg/dL (1.7-2.3) H 01/25/21 09:00 Ferritin 596.3 ng/mL (10.0-200.0) H 01/24/21 18:23 Total Bilirubin 0.60 mg/dL (0.1-1.2) 01/25/21 09:00 AST 14 units/L (5-40) 01/25/21 09:00 ALT 20 units/L (7-56) 01/25/21 09:00 Alkaline Phosphatase 122 units/L (35-129) 01/25/21 09:00 Lactate Dehydrogenase 461 units/L (91-180) H 01/24/21 18:23 Troponin T 0.046 ng/mL (0.00-0.029) H 01/21/21 11:55 C-Reactive Protein 4.40 mg/dL (0.00-1.30) H 01/24/21 18:23 NT-Pro-B Natriuret Pep 19.46 pg/mL (0-450) 01/21/21 11:55 Total Protein 6.5 g/dL (6.3-8.2) 01/25/21 09:00 Albumin 3.4 g/dL (3.9-5) L 01/25/21 09:00 Albumin/Globulin Ratio 1.1 % 01/25/21 09:00 Triglycerides 88 mg/dL (2-149) 01/21/21 11:55 Cholesterol 122 mg/dL (50-199) 01/21/21 11:55 LDL Cholesterol Direct 66 mg/dL (50-130) 01/21/21 11:55 HDL Cholesterol 41 mg/dL (40-59) 01/21/21 11:55 Cholesterol/HDL Ratio 2.97 % 01/21/21 11:55 Procalcitonin 0.07 ng/mL (<0.15) 01/21/21 11:55 Coronavirus (PCR) Positive (Negative) A 01/22/21 09:49 Microbiology: Microbiology 01/21/21 12:03 Peripheral/Venous Blood Culture - Preliminary NO GROWTH AFTER 72 HOURS 01/21/21 11:55 Peripheral/Venous Blood Culture - Preliminary NO GROWTH AFTER 72 HOURS Santiago/IV: Voiding Method Toilet Active Medications - Current Medications Current Medications: Generic Name Dose Route Start Last Admin Trade Name Freq PRN Reason Stop Dose Admin Acetaminophen 650 mg 01/21/21 15:16 Acetaminophen 325 Mg Tab PO Q4H PRN Pain MILD(1-3)/Fever >100.5/ALVARADO Albuterol 2.5 mg 01/21/21 15:16 Albuterol 2.5 Mg/3 Ml Nebu IH Q4HRT PRN Shortness Of Breath Ascorbic Acid 500 mg 01/21/21 22:00 01/25/21 09:10 Ascorbic Acid 500 Mg Tab PO 500 mg BID NOEMI Administration Cholecalciferol 1,000 unit 01/22/21 10:00 01/25/21 09:10 Cholecalciferol (Vit D3) 1000 Unit (25 Mcg) Tab PO 1,000 unit QDAY NOEMI Administration Famotidine 20 mg 01/21/21 22:00 01/25/21 09:10 Famotidine 20 Mg Tab PO 20 mg BID NOEMI Administration Heparin Sodium (Porcine) 5,000 unit 01/21/21 22:00 01/25/21 09:10 Heparin 5,000 Unit/1 Ml Vial SUB-Q 5,000 unit Q12HR NOEMI Administration REMDESIVIR 100 mg/ Sodium 250 mls @ 500 mls/hr 01/25/21 21:00 Chloride IV 01/28/21 21:29 Q24HR@2100 NOEMI Insulin Human Isoph/Insulin Regular 15 unit 01/25/21 17:00 Insulin Nph/Regular 70/30 Inj SUB-Q BIDDIAB NOEMI Insulin Human Lispro 0 unit 01/25/21 11:30 Insulin Lispro 100 Unit/Ml SUB-Q ACHS [facility] Protocol Insulin Human Regular 6 units 01/25/21 10:30 Insulin Regular, Human 100 Units/1 Ml IV 01/25/21 10:31 ONCE ONE Methylprednisolone Sodium Succinate 40 mg 01/21/21 16:00 01/25/21 08:23 Methylprednisolone Sod Succinate 40 Mg/1 Ml Inj IV 40 mg Q8H NOEMI Administration Ondansetron HCl 4 mg 01/21/21 15:16 Ondansetron 4 Mg/2 Ml Inj IV Q8H PRN Nausea And Vomiting Sodium Chloride 10 ml 01/21/21 22:00 01/25/21 09:10 Sodium Chloride 0.9% 10 Ml Flush Syringe IV 10 ml BID NOEMI Administration Sodium Chloride 10 ml 01/21/21 15:16 Sodium Chloride 0.9% 10 Ml Flush Syringe IV PRN PRN LINE FLUSH Sodium Chloride 50 ml 01/24/21 15:00 01/24/21 14:50 Sodium Chloride 0.9% 50 Ml Ivpb IV 01/28/21 21:01 50 ml Q24HR@2100 NOEMI Administration Zinc Sulfate 220 mg 01/21/21 22:00 01/25/21 09:10 Zinc Sulfate 220 Mg Cap PO 220 mg BID NOEMI Administration
[2021-01-25] MEDS ORDERED: INSULIN REGULAR, HUMAN 100 UNITS/1 ML IV ONE (10:30)
[2021-01-25 10:46] LABS: Total Cells Counted 100; Toxic Vacuolation Few
[2021-01-25 10:47] LABS: Platelet Estimate Consistent w Auto; RBC Morphology Normal
[2021-01-25] MEDS: INSULIN LISPRO 100 UNIT/ML SUB-Q SCH ×3 (11:30→21:56)
--- NOTE | 2021-01-25 13:55 | Progress Note ---
Assessment and Plan Cultures: SARS CoV2 PCR: Positive 01/21/2021 blood culture: No growth A/P: 40-year-old female with obesity hypoventilation, diabetes, morbid obesity: #Bilateral pneumonia: Secondary to COVID-19. Severe disease. CTA negative for PE. Did not meet criteria for Actrema #Acute hypoxic respiratory failure: improving. #Morbid obesity Recs: -Continue steroids for 10 days, agree with higher dose due to morbid obesity, monitor glucose -continue Remdesivir, D2 -prophylactic anticoagulation based on d-dimer per hospital protocol -trend ferritin, LDH, d-dimer, CRP every 2-3 days for risk stratification and to assess disease progression Florence Whitaker MD, FACP [facility] ([facility] O: [phone] F: [phone] Subjective Date of service: 01/25/21 Principal diagnosis: Acute respiratory failure with hypoxia Interval history: No fever. Weaned to 2 lit/min. Objective - Exam Narrative Exam: Physical Exam (reviewed in chart to minimize risk of transmission) Constitutional: deferred Head, Ears, Nose: deferred Eyes: deferred Neck: deferred Oral: deferred Cardiovascular: deferred Respiratory: deferred GI: deferred Musculoskeletal: deferred Skin: deferred Hem/Lymphatic: deferred Psych: deferred Neurological: deferred - Constitutional Vitals: Vital Signs Temp Pulse Resp BP Pulse Ox 98.7 F 76 18 129/72 94 01/25/21 11:16 01/25/21 11:16 01/25/21 11:16 01/25/21 11:16 01/25/21 11:16 Temperature -Last 24 Hours Temperature 98.7 F Temperature 97.7 F Temperature 98.1 F Temperature 97.7 F - Labs CBC & Chem 7: 01/25/21 09:00 01/25/21 09:00 Labs: Abnormal lab results 01/22/21 01/24/21 01/24/21 Range/Units 09:49 18:23 18:23 Hgb (10.1-14.3) gm/dl Hct (30.3-42.9) % Seg Neuts % (Manual) (40.0-70.0) % Lymphocytes % (Manual) (13.4-35.0) % Lymphocytes # (Manual) (1.2-5.4) K/mm3 D-Dimer 310.36 H (0-234) ng/mlDDU Sodium (137-145) mmol/L Potassium (3.6-5.0) mmol/L Chloride (98-107) mmol/L BUN (7-17) mg/dL Glucose (65-100) mg/dL POC Glucose (70-105) mg/dL Magnesium (1.7-2.3) mg/dL Ferritin 596.3 H (10.0-200.0) ng/mL Lactate Dehydrogenase (91-180) units/L C-Reactive Protein (0.00-1.30) mg/dL Albumin (3.9-5) g/dL Coronavirus (PCR) Positive A (Negative) 01/24/21 01/25/21 01/25/21 Range/Units 18:23 09:00 09:00 Hgb 14.5 H (10.1-14.3) gm/dl Hct 43.8 H (30.3-42.9) % Seg Neuts % (Manual) 90.0 H (40.0-70.0) % Lymphocytes % (Manual) 5.0 L (13.4-35.0) % Lymphocytes # (Manual) 0.4 L (1.2-5.4) K/mm3 D-Dimer (0-234) ng/mlDDU Sodium 135 L (137-145) mmol/L Potassium 5.5 H (3.6-5.0) mmol/L Chloride 95.7 L (98-107) mmol/L BUN 27 H (7-17) mg/dL Glucose 528 H* (65-100) mg/dL POC Glucose (70-105) mg/dL Magnesium (1.7-2.3) mg/dL Ferritin (10.0-200.0) ng/mL Lactate Dehydrogenase 461 H (91-180) units/L C-Reactive Protein 4.40 H (0.00-1.30) mg/dL Albumin 3.4 L (3.9-5) g/dL Coronavirus (PCR) (Negative) 01/25/21 01/25/21 Range/Units 09:00 11:19 Hgb (10.1-14.3) gm/dl Hct (30.3-42.9) % Seg Neuts % (Manual) (40.0-70.0) % Lymphocytes % (Manual) (13.4-35.0) % Lymphocytes # (Manual) (1.2-5.4) K/mm3 D-Dimer (0-234) ng/mlDDU Sodium (137-145) mmol/L Potassium (3.6-5.0) mmol/L Chloride (98-107) mmol/L BUN (7-17) mg/dL Glucose (65-100) mg/dL POC Glucose 416 H (70-105) mg/dL Magnesium 2.40 H (1.7-2.3) mg/dL Ferritin (10.0-200.0) ng/mL Lactate Dehydrogenase (91-180) units/L C-Reactive Protein (0.00-1.30) mg/dL Albumin (3.9-5) g/dL Coronavirus (PCR) (Negative)
[2021-01-25] MEDS ORDERED: INSULIN NPH/REGULAR 70/30 INJ SUB-Q SCH (17:00)
[2021-01-25] MEDS ORDERED: INSULIN NPH/REGULAR 70/30 INJ SUB-Q ONE (19:00)
[2021-01-25] MEDS: SODIUM CHLORIDE 0.9% 50 ML IVPB IV SCH (21:39)
[2021-01-25] MEDS: REMDESIVIR 100 MG in SODIUM CHLORIDE 0.9% 250ML 250 ML IV SCH (21:40)
[2021-01-26] MEDS ORDERED: INSULIN NPH/REGULAR 70/30 INJ SUB-Q SCH (08:00)
[2021-01-26] MEDS: INSULIN LISPRO 100 UNIT/ML SUB-Q SCH ×4 (08:15→21:45)
[2021-01-26] MEDS: methylPREDNISolone Sod Succinate 40 MG/1 ML INJ IV SCH ×3 (08:16→23:12)
[2021-01-26 08:39] LABS: Alanine Aminotransferase 17 units/L (7-56); Albumin 3.1 g/dL (3.9-5); Blood Urea Nitrogen 23 mg/dL (7-17); Calcium 8.6 mg/dL (8.4-10.2); Hemolysis Index 10
[2021-01-26] MEDS: FAMOTIDINE 20 MG TAB PO SCH ×3 (08:48→21:21)
[2021-01-26] MEDS: ASCORBIC ACID 500 MG TAB PO SCH ×3 (08:48→21:21)
[2021-01-26] MEDS: ZINC SULFATE 220 MG CAP PO SCH ×3 (08:48→21:21)
[2021-01-26] MEDS: HEPARIN 5,000 UNIT/1 ML VIAL SUB-Q SCH ×3 (08:49→21:22)
[2021-01-26] MEDS: CHOLECALCIFEROL (VIT D3) 1000 UNIT (25 mcg) TAB PO SCH ×2 (08:49→12:54)
[2021-01-26 09:02] LABS: BUN/Creatinine Ratio 38
--- NOTE | 2021-01-26 10:48 | Progress Note ---
Assessment and Plan Assessment and plan: Assessment and Plan Assessment and plan: Type 2 diabetes mellitus ; Patient is noncompliant with meds and diet for many months Not on medications, check A1c Sugars are high uncontrolled Accu-Chek sliding scale coverage ADA diet Long-acting insulin Novolin 70/30 Diabetic education, diabetic nutrition education Possible home health nurse for disease monitoring at discharge positive COVID-19 test Alvarado PCR test is positive Continue isolation ID consulted Management per COVID-19 protocols. Steroids, remdesivir, Actemra if needed Hypoxia supplemental oxygen evaluation Home O2 evaluation upon discharge Inflammatory markers We will monitor closely and adjust management as needed Plan of care discussed with the patient and her nurse Acute respiratory failure with hypoxia On 6 L nasal cannula oxygen Intermittent BiPAP, wean as tolerated Home O2 evaluation upon discharge Pneumonia On IV antibiotics. Procalcitonin level is low No evidence of pneumonia, DC antibiotics Obesity BMI 52.8. Patient needs weight reduction , diet modification Lifestyle changes , exercise as tolerated and weight reduction ,patient needs bariatric surgery evaluation Patient will be counseled regarding follow-up with Dr. King as outpatient DVT prophylaxis ; Heparin subcu/SCDs Medical noncompliance Patient strongly advised to comply with medications, diet, follow-up visits, home health nurse Closely monitor patient and adjust management as needed Follow alvarado PCR test report, if positive consult ID Plan of care reviewed with the patient and her nurse Brief history; 40 YO Female with Obesity Hypoventilation Syndrome, DM, MO, PCOS, Metabolic Syndrome presents to ED for evaluation. Patient reports "I just cannot breathe". Patient states that she has experienced shortness of breath, decreased exercise tolerance, malaise, body aches over the past 5 days with worsening symptoms over the same timeframe. Patient transported to [facility] via private vehicle for further care and evaluation of the aforementioned symptoms. Patient seen and evaluated in the emergency department. All lab and imaging studies reviewed. Patient found to have a pulse oximetry of 77% on room air with exertion which is consistent with acute hypoxemic respiratory failure. Patient underwent chest x-ray which revealed bilateral pneumonia. Patient admitted to medical floor and initiated on coronavirus protocol as well as pneumonia protocol. Patient denies fever, chills, chest pain, palpitation, productive cough, skin rash, recent ill contacts, unilateral leg swelling, calf pain, individual/family history of DVT/PE/bleeding/blood clotting disorders, or known exposure to COVID-19. No prior admission for review. No medication listed at time of admission for reconciliation. 01/24/2021; admitted as PUI, alvarado PCR test sent, pending report Continue supportive care 01/25/2021; patient's blood sugars are uncontrolled, noncompliant with medications for many years Accu-Chek sliding scale coverage ADA diet, Novolin 70/30 start low and increase as needed Check A1c, home health nurse at discharge, diabetic education and diabetic diet Disposition; closely monitor, follow consultants recommendation, discharged with home health when stable 01/26/2021 patient denies any shortness of breath no chest pain. Patient blood glucose is uncontrolled. Blood glucose is 370. Will increase the Novolin 70/30 30 units twice a day. Diabetic education, diabetic diet and home health nurse at discharge. Respiratory therapist is checking for home oxygen walking oxygen level Disposition when cleared by infectious disease and when the Covid treatment will complete History Interval history: Patient is seen and examined the patient at the bedside this morning Patient's chart and medications reviewed, Covid positive patient on contact and droplet isolation I followed strict isolation precautions and PPE protocols per COVID-19 guidelines while evaluating the patient Patient's blood sugars are uncontrolled blood glucose was 370 Patient denied any shortness of breath no cough. Respiratory therapist is checking for home oxygen Vital signs noted Hospitalist Physical - Constitutional Vitals: Temp Pulse Resp BP Pulse Ox 98.8 F 71 18 134/96 97 01/25/21 16:31 01/25/21 21:45 01/25/21 21:45 01/25/21 16:31 01/25/21 21:45 General appearance: Present: no acute distress, well-nourished, obese (Morbidly obese) HEART Score - HEART Score Troponin: Troponin T 0.046 ng/mL (0.00-0.029) H 01/21/21 11:55 Results - Labs CBC & Chem 7: 01/25/21 09:00 01/26/21 07:24 Labs: Laboratory Last Values WBC 7.2 K/mm3 (4.5-11.0) 01/25/21 09:00 RBC 4.99 M/mm3 (3.65-5.03) 01/25/21 09:00 Hgb 14.5 gm/dl (10.1-14.3) H 01/25/21 09:00 Hct 43.8 % (30.3-42.9) H 01/25/21 09:00 MCV 88 fl (79-97) 01/25/21 09:00 MCH 29 pg (28-32) 01/25/21 09:00 MCHC 33 % (30-34) 01/25/21 09:00 RDW 13.2 % (13.2-15.2) 01/25/21 09:00 Plt Count 352 K/mm3 (140-440) 01/25/21 09:00 Lymph % (Auto) 15.3 % (13.4-35.0) 01/22/21 10:38 [place] % (Auto) 9.0 % (0.0-7.3) H 01/22/21 10:38 Eos % (Auto) 0.0 % (0.0-4.3) 01/22/21 10:38 Baso % (Auto) 0.6 % (0.0-1.8) 01/22/21 10:38 Lymph # (Auto) 1.5 K/mm3 (1.2-5.4) 01/22/21 10:38 [place] # (Auto) 0.9 K/mm3 (0.0-0.8) H 01/22/21 10:38 Eos # (Auto) 0.0 K/mm3 (0.0-0.4) 01/22/21 10:38 Baso # (Auto) 0.1 K/mm3 (0.0-0.1) 01/22/21 10:38 Add Manual Diff Complete 01/25/21 09:00 Total Counted 100 01/25/21 09:00 Seg Neutrophils % 75.1 % (40.0-70.0) H 01/22/21 10:38 Seg Neuts % (Manual) 90.0 % (40.0-70.0) H 01/25/21 09:00 Lymphocytes % (Manual) 5.0 % (13.4-35.0) L 01/25/21 09:00 Monocytes % (Manual) 5.0 % (0.0-7.3) 01/25/21 09:00 Nucleated RBC % Not Reportable 01/25/21 09:00 Seg Neutrophils # 7.2 K/mm3 (1.8-7.7) 01/22/21 10:38 Seg Neutrophils # Man 6.5 K/mm3 (1.8-7.7) 01/25/21 09:00 Band Neutrophils # 0.0 K/mm3 01/25/21 09:00 Lymphocytes # (Manual) 0.4 K/mm3 (1.2-5.4) L 01/25/21 09:00 Abs React Lymphs (Man) 0.0 K/mm3 01/25/21 09:00 Monocytes # (Manual) 0.4 K/mm3 (0.0-0.8) 01/25/21 09:00 Eosinophils # (Manual) 0.0 K/mm3 (0.0-0.4) 01/25/21 09:00 Basophils # (Manual) 0.0 K/mm3 (0.0-0.1) 01/25/21 09:00 Metamyelocytes # 0.0 K/mm3 01/25/21 09:00 Myelocytes # 0.0 K/mm3 01/25/21 09:00 Promyelocytes # 0.0 K/mm3 01/25/21 09:00 Blast Cells # 0.0 K/mm3 01/25/21 09:00 WBC Morphology Not Reportable 01/25/21 09:00 Hypersegmented Neuts Not Reportable 01/25/21 09:00 Hyposegmented Neuts Not Reportable 01/25/21 09:00 Hypogranular Neuts Not Reportable 01/25/21 09:00 Smudge Cells Not Reportable 01/25/21 09:00 Toxic Granulation Not Reportable 01/25/21 09:00 Toxic Vacuolation Few 01/25/21 09:00 Dohle Bodies Not Reportable 01/25/21 09:00 Pelger-Huet Anomaly Not Reportable 01/25/21 09:00 Kwame Rods Not Reportable 01/25/21 09:00 Platelet Estimate Consistent w auto 01/25/21 09:00 Clumped Platelets Not Reportable 01/25/21 09:00 Plt Clumps, EDTA Not Reportable 01/25/21 09:00 Large Platelets Not Reportable 01/25/21 09:00 Giant Platelets Not Reportable 01/25/21 09:00 Platelet Satelliting Not Reportable 01/25/21 09:00 Plt Morphology Comment Not Reportable 01/25/21 09:00 RBC Morphology Normal 01/25/21 09:00 Dimorphic RBCs Not Reportable 01/25/21 09:00 Polychromasia Not Reportable 01/25/21 09:00 Hypochromasia Not Reportable 01/25/21 09:00 Poikilocytosis Not Reportable 01/25/21 09:00 Anisocytosis Not Reportable 01/25/21 09:00 Microcytosis Not Reportable 01/25/21 09:00 Macrocytosis Not Reportable 01/25/21 09:00 Spherocytes Not Reportable 01/25/21 09:00 Pappenheimer Bodies Not Reportable 01/25/21 09:00 Sickle Cells Not Reportable 01/25/21 09:00 Target Cells Not Reportable 01/25/21 09:00 Tear Drop Cells Not Reportable 01/25/21 09:00 Ovalocytes Not Reportable 01/25/21 09:00 Helmet Cells Not Reportable 01/25/21 09:00 [place] Bodies Not Reportable 01/25/21 09:00 Victor Rings Not Reportable 01/25/21 09:00 Clay Cells Not Reportable 01/25/21 09:00 Bite Cells Not Reportable 01/25/21 09:00 Crenated Cell Not Reportable 01/25/21 09:00 Elliptocytes Not Reportable 01/25/21 09:00 Acanthocytes (Spur) Not Reportable 01/25/21 09:00 Rouleaux Not Reportable 01/25/21 09:00 Hemoglobin C Crystals Not Reportable 01/25/21 09:00 Schistocytes Not Reportable 01/25/21 09:00 Malaria parasites Not Reportable 01/25/21 09:00 Constantine Bodies Not Reportable 01/25/21 09:00 Hem Pathologist Commnt No 01/25/21 09:00 D-Dimer 310.36 ng/mlDDU (0-234) H 01/24/21 18:23 Sodium 137 mmol/L (137-145) 01/26/21 07:24 Potassium 5.1 mmol/L (3.6-5.0) H 01/26/21 07:24 Chloride 98.9 mmol/L (98-107) 01/26/21 07:24 Carbon Dioxide 29 mmol/L (22-30) 01/26/21 07:24 Anion Gap 14 mmol/L 01/26/21 07:24 BUN 23 mg/dL (7-17) H 01/26/21 07:24 Creatinine 0.6 mg/dL (0.6-1.2) 01/26/21 07:24 Estimated GFR > 60 ml/min 01/26/21 07:24 BUN/Creatinine Ratio 38 % 01/26/21 07:24 Glucose 357 mg/dL (65-100) H 01/26/21 07:24 POC Glucose 370 mg/dL (70-105) H 01/25/21 20:31 Hemoglobin A1c 11.7 % (4-6) H 01/25/21 09:00 Calcium 8.6 mg/dL (8.4-10.2) 01/26/21 07:24 Magnesium 2.40 mg/dL (1.7-2.3) H 01/25/21 09:00 Ferritin 596.3 ng/mL (10.0-200.0) H 01/24/21 18:23 Total Bilirubin 0.70 mg/dL (0.1-1.2) 01/26/21 07:24 AST 15 units/L (5-40) 01/26/21 07:24 ALT 17 units/L (7-56) 01/26/21 07:24 Alkaline Phosphatase 102 units/L (35-129) 01/26/21 07:24 Lactate Dehydrogenase 461 units/L (91-180) H 01/24/21 18:23 Troponin T 0.046 ng/mL (0.00-0.029) H 01/21/21 11:55 C-Reactive Protein 4.40 mg/dL (0.00-1.30) H 01/24/21 18:23 NT-Pro-B Natriuret Pep 19.46 pg/mL (0-450) 01/21/21 11:55 Total Protein 6.5 g/dL (6.3-8.2) 01/26/21 07:24 Albumin 3.1 g/dL (3.9-5) L 01/26/21 07:24 Albumin/Globulin Ratio 0.9 % 01/26/21 07:24 Triglycerides 88 mg/dL (2-149) 01/21/21 11:55 Cholesterol 122 mg/dL (50-199) 01/21/21 11:55 LDL Cholesterol Direct 66 mg/dL (50-130) 01/21/21 11:55 HDL Cholesterol 41 mg/dL (40-59) 01/21/21 11:55 Cholesterol/HDL Ratio 2.97 % 01/21/21 11:55 Procalcitonin 0.07 ng/mL (<0.15) 01/21/21 11:55 Coronavirus (PCR) Positive (Negative) A 01/22/21 09:49 Microbiology: Microbiology 01/21/21 12:03 Peripheral/Venous Blood Culture - Preliminary NO GROWTH AFTER 4 DAYS 01/21/21 11:55 Peripheral/Venous Blood Culture - Preliminary NO GROWTH AFTER 4 DAYS Santiago/IV: Voiding Method Toilet Active Medications - Current Medications Current Medications: Generic Name Dose Route Start Last Admin Trade Name Freq PRN Reason Stop Dose Admin Acetaminophen 650 mg 01/21/21 15:16 Acetaminophen 325 Mg Tab PO Q4H PRN Pain MILD(1-3)/Fever >100.5/ALVARADO Albuterol 2.5 mg 01/21/21 15:16 Albuterol 2.5 Mg/3 Ml Nebu IH Q4HRT PRN Shortness Of Breath Ascorbic Acid 500 mg 01/21/21 22:00 01/26/21 08:48 Ascorbic Acid 500 Mg Tab PO 500 mg BID NOEMI Administration Cholecalciferol 1,000 unit 01/22/21 10:00 01/26/21 08:49 Cholecalciferol (Vit D3) 1000 Unit (25 Mcg) Tab PO 1,000 unit QDAY NOEMI Administration Famotidine 20 mg 01/21/21 22:00 01/26/21 08:48 Famotidine 20 Mg Tab PO 20 mg BID NOEMI Administration Heparin Sodium (Porcine) 5,000 unit 01/21/21 22:00 01/26/21 08:49 Heparin 5,000 Unit/1 Ml Vial SUB-Q 5,000 unit Q12HR NOEMI Administration REMDESIVIR 100 mg/ Sodium 250 mls @ 500 mls/hr 01/25/21 21:00 01/26/21 06:46 Chloride IV 01/28/21 21:29 Infused Q24HR@2100 NOEMI Infusion Insulin Human Isoph/Insulin Regular 28 unit 01/26/21 08:00 01/26/21 07:30 Insulin Nph/Regular 70/30 Inj SUB-Q 28 unit BIDDIAB NOEMI Administration Insulin Human Lispro 0 unit 01/25/21 11:30 01/26/21 08:15 Insulin Lispro 100 Unit/Ml SUB-Q 10 unit ACHS NOEMI Administration Protocol Methylprednisolone Sodium Succinate 40 mg 01/21/21 16:00 01/26/21 08:16 Methylprednisolone Sod Succinate 40 Mg/1 Ml Inj IV 40 mg Q8H NOEMI Administration Ondansetron HCl 4 mg 01/21/21 15:16 Ondansetron 4 Mg/2 Ml Inj IV Q8H PRN Nausea And Vomiting Sodium Chloride 10 ml 01/21/21 22:00 01/26/21 08:50 Sodium Chloride 0.9% 10 Ml Flush Syringe IV 10 ml BID NOEMI Administration Sodium Chloride 10 ml 01/21/21 15:16 Sodium Chloride 0.9% 10 Ml Flush Syringe IV PRN PRN LINE FLUSH Sodium Chloride 50 ml 01/24/21 15:00 01/25/21 21:39 Sodium Chloride 0.9% 50 Ml Ivpb IV 01/28/21 21:01 50 ml Q24HR@2100 NOEMI Administration Zinc Sulfate 220 mg 01/21/21 22:00 01/26/21 08:48 Zinc Sulfate 220 Mg Cap PO 220 mg BID NOEMI Administration Nutrition/Malnutrition Assess - Malnutrition Assessment Minimum of two criteria: No physical signs of malnutrition - Attestation Statement I have reviewed and agreed w/ Malnutrition eval & tx plan: Yes
--- NOTE | 2021-01-26 12:31 | Progress Note ---
Assessment and Plan Cultures: SARS CoV2 PCR: Positive 01/21/2021 blood culture: No growth A/P: 40-year-old female with obesity hypoventilation, diabetes, morbid obesity: #Bilateral pneumonia: Secondary to COVID-19. Severe disease. CTA negative for PE. Did not meet criteria for Actrema. #Acute hypoxic respiratory failure: improving. #Morbid obesity Recs: -Continue steroids for 10 days -Remdesivir, D3 -prophylactic anticoagulation based on d-dimer per hospital protocol -trend ferritin, LDH, d-dimer, CRP every 2-3 days for risk stratification and to assess disease progression -discharge planning, home oxygen evaluation, if she goes home on oxygen, please arrange follow up with PCP/pulmonary to help wean oxygen as outpatient Florence Whitaker MD, FACP [facility] ([facility] O: [phone] F: [phone] Subjective Date of service: 01/26/21 Principal diagnosis: Acute respiratory failure with hypoxia Interval history: No fever. remains stable on 2 lit/min. Objective - Exam Narrative Exam: Physical Exam (reviewed in chart to minimize risk of transmission) Constitutional: deferred Head, Ears, Nose: deferred Eyes: deferred Neck: deferred Oral: deferred Cardiovascular: deferred Respiratory: deferred GI: deferred Musculoskeletal: deferred Skin: deferred Hem/Lymphatic: deferred Psych: deferred Neurological: deferred - Constitutional Vitals: Vital Signs Temp Pulse Resp BP Pulse Ox 98.8 F 71 18 134/96 95 01/25/21 16:31 01/25/21 21:45 01/25/21 21:45 01/25/21 16:31 01/26/21 11:38 Temperature -Last 24 Hours Temperature 98.8 F - Labs CBC & Chem 7: 01/25/21 09:00 01/26/21 07:24 Labs: Abnormal lab results 01/25/21 01/25/21 01/25/21 Range/Units 09:00 16:05 20:31 Potassium (3.6-5.0) mmol/L BUN (7-17) mg/dL Glucose (65-100) mg/dL POC Glucose 423 H 370 H (70-105) mg/dL Hemoglobin A1c 11.7 H (4-6) % Albumin (3.9-5) g/dL 01/26/21 01/26/21 01/26/21 Range/Units 07:24 07:35 11:52 Potassium 5.1 H (3.6-5.0) mmol/L BUN 23 H (7-17) mg/dL Glucose 357 H (65-100) mg/dL POC Glucose 360 H 446 H (70-105) mg/dL Hemoglobin A1c (4-6) % Albumin 3.1 L (3.9-5) g/dL
[2021-01-26] MEDS: INSULIN NPH/REGULAR 70/30 INJ SUB-Q SCH (16:30)
[2021-01-26] MEDS: REMDESIVIR 100 MG in SODIUM CHLORIDE 0.9% 250ML 250 ML IV SCH (21:22)
[2021-01-26] MEDS: SODIUM CHLORIDE 0.9% 50 ML IVPB IV SCH (21:22)
[2021-01-27 08:47] LABS: Alanine Aminotransferase TNR units/L (7-56)
[2021-01-27 08:49] LABS: BUN/Creatinine Ratio TNR; Blood Urea Nitrogen TNR mg/dL (7-17); Calcium TNR mg/dL (8.4-10.2)
[2021-01-27 08:50] LABS: Albumin TNR g/dL (3.9-5); Hemolysis Index TNR
[2021-01-27] MEDS: INSULIN NPH/REGULAR 70/30 INJ SUB-Q SCH ×2 (10:04→17:22)
[2021-01-27] MEDS: INSULIN LISPRO 100 UNIT/ML SUB-Q SCH ×4 (10:05→22:14)
[2021-01-27] MEDS: ASCORBIC ACID 500 MG TAB PO SCH ×2 (10:06→22:14)
[2021-01-27] MEDS: HEPARIN 5,000 UNIT/1 ML VIAL SUB-Q SCH ×2 (10:06→22:13)
[2021-01-27] MEDS: CHOLECALCIFEROL (VIT D3) 1000 UNIT (25 mcg) TAB PO SCH (10:06)
[2021-01-27] MEDS: ZINC SULFATE 220 MG CAP PO SCH ×2 (10:06→22:13)
[2021-01-27] MEDS: FAMOTIDINE 20 MG TAB PO SCH ×2 (10:06→22:13)
[2021-01-27] MEDS: methylPREDNISolone Sod Succinate 40 MG/1 ML INJ IV SCH ×2 (10:06→17:21)
--- NOTE | 2021-01-27 10:11 | Progress Note ---
Assessment and Plan Assessment and plan: Assessment and Plan Assessment and plan: Type 2 diabetes mellitus ; Patient is noncompliant with meds and diet for many months Not on medications, check A1c Sugars are high uncontrolled Accu-Chek sliding scale coverage ADA diet Long-acting insulin Novolin 70/30 Diabetic education, diabetic nutrition education Possible home health nurse for disease monitoring at discharge positive COVID-19 test Alvarado PCR test is positive Continue isolation ID consulted Management per COVID-19 protocols. Steroids, remdesivir, Actemra if needed Hypoxia supplemental oxygen evaluation Home O2 evaluation upon discharge Inflammatory markers We will monitor closely and adjust management as needed Plan of care discussed with the patient and her nurse Acute respiratory failure with hypoxia On 6 L nasal cannula oxygen Intermittent BiPAP, wean as tolerated Home O2 evaluation upon discharge Pneumonia On IV antibiotics. Procalcitonin level is low No evidence of pneumonia, DC antibiotics Obesity BMI 52.8. Patient needs weight reduction , diet modification Lifestyle changes , exercise as tolerated and weight reduction ,patient needs bariatric surgery evaluation Patient will be counseled regarding follow-up with Dr. King as outpatient DVT prophylaxis ; Heparin subcu/SCDs Medical noncompliance Patient strongly advised to comply with medications, diet, follow-up visits, home health nurse Closely monitor patient and adjust management as needed Follow alvarado PCR test report, if positive consult ID Plan of care reviewed with the patient and her nurse Brief history; 40 YO Female with Obesity Hypoventilation Syndrome, DM, MO, PCOS, Metabolic Syndrome presents to ED for evaluation. Patient reports "I just cannot breathe". Patient states that she has experienced shortness of breath, decreased exercise tolerance, malaise, body aches over the past 5 days with worsening symptoms over the same timeframe. Patient transported to [facility] via private vehicle for further care and evaluation of the aforementioned symptoms. Patient seen and evaluated in the emergency department. All lab and imaging studies reviewed. Patient found to have a pulse oximetry of 77% on room air with exertion which is consistent with acute hypoxemic respiratory failure. Patient underwent chest x-ray which revealed bilateral pneumonia. Patient admitted to medical floor and initiated on coronavirus protocol as well as pneumonia protocol. Patient denies fever, chills, chest pain, palpitation, productive cough, skin rash, recent ill contacts, unilateral leg swelling, calf pain, individual/family history of DVT/PE/bleeding/blood clotting disorders, or known exposure to COVID-19. No prior admission for review. No medication listed at time of admission for reconciliation. 01/24/2021; admitted as PUI, alvarado PCR test sent, pending report Continue supportive care 01/25/2021; patient's blood sugars are uncontrolled, noncompliant with medications for many years Accu-Chek sliding scale coverage ADA diet, Novolin 70/30 start low and increase as needed Check A1c, home health nurse at discharge, diabetic education and diabetic diet Disposition; closely monitor, follow consultants recommendation, discharged with home health when stable 01/26/2021 patient denies any shortness of breath no chest pain. Patient blood glucose is uncontrolled. Blood glucose is 370. Will increase the Novolin 70/30 30 units twice a day. Diabetic education, diabetic diet and home health nurse at discharge. Respiratory therapist is checking for home oxygen walking oxygen level Disposition when cleared by infectious disease and when the Covid treatment will complete 01/27/21 Patient is doing well. Patient is getting remdesivir day 4 We will continue the steroid for 10 days Blood sugar is better at 348. Continue current management Possible discharge planning in 1 to 2 days when cleared by infectious disease and pulmonary. History Interval history: Patient is seen and examined the patient at the bedside this morning Patient's chart and medications reviewed, Covid positive patient on contact and droplet isolation I followed strict isolation precautions and PPE protocols per COVID-19 guidelines while evaluating the patient Patient's blood sugars are uncontrolled blood glucose was 348 Patient denied any shortness of breath no cough. Patient is on room air without any difficulty. O2 saturation on walking 92% Vital signs noted Hospitalist Physical - Constitutional Vitals: Temp Pulse Resp BP Pulse Ox 97.2 F L 55 L 20 104/69 97 01/27/21 06:07 01/27/21 06:07 01/27/21 06:07 01/27/21 06:07 01/27/21 06:07 General appearance: Present: no acute distress, well-nourished, obese (Morbidly obese) HEART Score - HEART Score Troponin: Troponin T 0.046 ng/mL (0.00-0.029) H 01/21/21 11:55 Results - Labs CBC & Chem 7: 01/25/21 09:00 01/27/21 06:37 Labs: Laboratory Last Values WBC 7.2 K/mm3 (4.5-11.0) 01/25/21 09:00 RBC 4.99 M/mm3 (3.65-5.03) 01/25/21 09:00 Hgb 14.5 gm/dl (10.1-14.3) H 01/25/21 09:00 Hct 43.8 % (30.3-42.9) H 01/25/21 09:00 MCV 88 fl (79-97) 01/25/21 09:00 MCH 29 pg (28-32) 01/25/21 09:00 MCHC 33 % (30-34) 01/25/21 09:00 RDW 13.2 % (13.2-15.2) 01/25/21 09:00 Plt Count 352 K/mm3 (140-440) 01/25/21 09:00 Lymph % (Auto) 15.3 % (13.4-35.0) 01/22/21 10:38 [place] % (Auto) 9.0 % (0.0-7.3) H 01/22/21 10:38 Eos % (Auto) 0.0 % (0.0-4.3) 01/22/21 10:38 Baso % (Auto) 0.6 % (0.0-1.8) 01/22/21 10:38 Lymph # (Auto) 1.5 K/mm3 (1.2-5.4) 01/22/21 10:38 [place] # (Auto) 0.9 K/mm3 (0.0-0.8) H 01/22/21 10:38 Eos # (Auto) 0.0 K/mm3 (0.0-0.4) 01/22/21 10:38 Baso # (Auto) 0.1 K/mm3 (0.0-0.1) 01/22/21 10:38 Add Manual Diff Complete 01/25/21 09:00 Total Counted 100 01/25/21 09:00 Seg Neutrophils % 75.1 % (40.0-70.0) H 01/22/21 10:38 Seg Neuts % (Manual) 90.0 % (40.0-70.0) H 01/25/21 09:00 Lymphocytes % (Manual) 5.0 % (13.4-35.0) L 01/25/21 09:00 Monocytes % (Manual) 5.0 % (0.0-7.3) 01/25/21 09:00 Nucleated RBC % Not Reportable 01/25/21 09:00 Seg Neutrophils # 7.2 K/mm3 (1.8-7.7) 01/22/21 10:38 Seg Neutrophils # Man 6.5 K/mm3 (1.8-7.7) 01/25/21 09:00 Band Neutrophils # 0.0 K/mm3 01/25/21 09:00 Lymphocytes # (Manual) 0.4 K/mm3 (1.2-5.4) L 01/25/21 09:00 Abs React Lymphs (Man) 0.0 K/mm3 01/25/21 09:00 Monocytes # (Manual) 0.4 K/mm3 (0.0-0.8) 01/25/21 09:00 Eosinophils # (Manual) 0.0 K/mm3 (0.0-0.4) 01/25/21 09:00 Basophils # (Manual) 0.0 K/mm3 (0.0-0.1) 01/25/21 09:00 Metamyelocytes # 0.0 K/mm3 01/25/21 09:00 Myelocytes # 0.0 K/mm3 01/25/21 09:00 Promyelocytes # 0.0 K/mm3 01/25/21 09:00 Blast Cells # 0.0 K/mm3 01/25/21 09:00 WBC Morphology Not Reportable 01/25/21 09:00 Hypersegmented Neuts Not Reportable 01/25/21 09:00 Hyposegmented Neuts Not Reportable 01/25/21 09:00 Hypogranular Neuts Not Reportable 01/25/21 09:00 Smudge Cells Not Reportable 01/25/21 09:00 Toxic Granulation Not Reportable 01/25/21 09:00 Toxic Vacuolation Few 01/25/21 09:00 Dohle Bodies Not Reportable 01/25/21 09:00 Pelger-Huet Anomaly Not Reportable 01/25/21 09:00 Kwame Rods Not Reportable 01/25/21 09:00 Platelet Estimate Consistent w auto 01/25/21 09:00 Clumped Platelets Not Reportable 01/25/21 09:00 Plt Clumps, EDTA Not Reportable 01/25/21 09:00 Large Platelets Not Reportable 01/25/21 09:00 Giant Platelets Not Reportable 01/25/21 09:00 Platelet Satelliting Not Reportable 01/25/21 09:00 Plt Morphology Comment Not Reportable 01/25/21 09:00 RBC Morphology Normal 01/25/21 09:00 Dimorphic RBCs Not Reportable 01/25/21 09:00 Polychromasia Not Reportable 01/25/21 09:00 Hypochromasia Not Reportable 01/25/21 09:00 Poikilocytosis Not Reportable 01/25/21 09:00 Anisocytosis Not Reportable 01/25/21 09:00 Microcytosis Not Reportable 01/25/21 09:00 Macrocytosis Not Reportable 01/25/21 09:00 Spherocytes Not Reportable 01/25/21 09:00 Pappenheimer Bodies Not Reportable 01/25/21 09:00 Sickle Cells Not Reportable 01/25/21 09:00 Target Cells Not Reportable 01/25/21 09:00 Tear Drop Cells Not Reportable 01/25/21 09:00 Ovalocytes Not Reportable 01/25/21 09:00 Helmet Cells Not Reportable 01/25/21 09:00 [place] Bodies Not Reportable 01/25/21 09:00 [place] Rings Not Reportable 01/25/21 09:00 Jay Cells Not Reportable 01/25/21 09:00 Bite Cells Not Reportable 01/25/21 09:00 Crenated Cell Not Reportable 01/25/21 09:00 Elliptocytes Not Reportable 01/25/21 09:00 Acanthocytes (Spur) Not Reportable 01/25/21 09:00 Rouleaux Not Reportable 01/25/21 09:00 Hemoglobin C Crystals Not Reportable 01/25/21 09:00 Schistocytes Not Reportable 01/25/21 09:00 Malaria parasites Not Reportable 01/25/21 09:00 [place] Bodies Not Reportable 01/25/21 09:00 Hem Pathologist Commnt No 01/25/21 09:00 D-Dimer 310.36 ng/mlDDU (0-234) H 01/24/21 18:23 Sodium TNR 01/27/21 06:37 Potassium TNR 01/27/21 06:37 Chloride TNR 01/27/21 06:37 Carbon Dioxide TNR 01/27/21 06:37 Anion Gap TNR 01/27/21 06:37 BUN TNR 01/27/21 06:37 Creatinine TNR 01/27/21 06:37 Estimated GFR TNR 01/27/21 06:37 BUN/Creatinine Ratio TNR 01/27/21 06:37 Glucose TNR 01/27/21 06:37 POC Glucose 348 mg/dL (70-105) H 01/26/21 21:16 Hemoglobin A1c 11.7 % (4-6) H 01/25/21 09:00 Calcium TNR 01/27/21 06:37 Magnesium 2.40 mg/dL (1.7-2.3) H 01/25/21 09:00 Ferritin 596.3 ng/mL (10.0-200.0) H 01/24/21 18:23 Total Bilirubin TN 01/27/21 06:37 AST TNR 01/27/21 06:37 ALT TNR 01/27/21 06:37 Alkaline Phosphatase CTR 01/27/21 06:37 Lactate Dehydrogenase 461 units/L (91-180) H 01/24/21 18:23 Troponin T 0.046 ng/mL (0.00-0.029) H 01/21/21 11:55 C-Reactive Protein 4.40 mg/dL (0.00-1.30) H 01/24/21 18:23 NT-Pro-B Natriuret Pep 19.46 pg/mL (0-450) 01/21/21 11:55 Total Protein [facility] 01/27/21 06:37 Albumin CTR 01/27/21 06:37 Albumin/Globulin Ratio [facility] 01/27/21 06:37 Triglycerides 88 mg/dL (2-149) 01/21/21 11:55 Cholesterol 122 mg/dL (50-199) 01/21/21 11:55 LDL Cholesterol Direct 66 mg/dL (50-130) 01/21/21 11:55 HDL Cholesterol 41 mg/dL (40-59) 01/21/21 11:55 Cholesterol/HDL Ratio 2.97 % 01/21/21 11:55 Procalcitonin 0.07 ng/mL (<0.15) 01/21/21 11:55 Coronavirus (PCR) Positive (Negative) A 01/22/21 09:49 Microbiology: Microbiology 01/21/21 12:03 Peripheral/Venous Blood Culture - Final NO GROWTH AFTER 5 DAYS 01/21/21 11:55 Peripheral/Venous Blood Culture - Final NO GROWTH AFTER 5 DAYS Santiago/IV: Voiding Method Toilet Active Medications - Current Medications Current Medications: Generic Name Dose Route Start Last Admin Trade Name Freq PRN Reason Stop Dose Admin Acetaminophen 650 mg 01/21/21 15:16 Acetaminophen 325 Mg Tab PO Q4H PRN Pain MILD(1-3)/Fever >100.5/ALVARADO Albuterol 2.5 mg 01/21/21 15:16 Albuterol 2.5 Mg/3 Ml Nebu IH Q4HRT PRN Shortness Of Breath Ascorbic Acid 500 mg 01/21/21 22:00 01/27/21 10:06 Ascorbic Acid 500 Mg Tab PO 500 mg BID NOEMI Administration Cholecalciferol 1,000 unit 01/22/21 10:00 01/27/21 10:06 Cholecalciferol (Vit D3) 1000 Unit (25 Mcg) Tab PO 1,000 unit QDAY NOEMI Administration Famotidine 20 mg 01/21/21 22:00 01/27/21 10:06 Famotidine 20 Mg Tab PO 20 mg BID NOEMI Administration Heparin Sodium (Porcine) 5,000 unit 01/21/21 22:00 01/27/21 10:06 Heparin 5,000 Unit/1 Ml Vial SUB-Q 5,000 unit Q12HR NOEMI Administration REMDESIVIR 100 mg/ Sodium 250 mls @ 500 mls/hr 01/25/21 21:00 01/26/21 21:22 Chloride IV 01/28/21 21:29 500 mls/hr Q24HR@2100 NOEMI Administration Insulin Human Isoph/Insulin Regular 30 unit 01/26/21 17:00 01/27/21 10:04 Insulin Nph/Regular 70/30 Inj SUB-Q 30 unit BIDDIAB NOEMI Administration Insulin Human Lispro 0 unit 01/25/21 11:30 01/27/21 10:05 Insulin Lispro 100 Unit/Ml SUB-Q 6 unit ACHS NOEMI Administration Protocol Methylprednisolone Sodium Succinate 40 mg 01/21/21 16:00 01/27/21 10:06 Methylprednisolone Sod Succinate 40 Mg/1 Ml Inj IV 40 mg Q8H NOEMI Administration Ondansetron HCl 4 mg 01/21/21 15:16 Ondansetron 4 Mg/2 Ml Inj IV Q8H PRN Nausea And Vomiting Sodium Chloride 10 ml 01/21/21 22:00 01/27/21 10:06 Sodium Chloride 0.9% 10 Ml Flush Syringe IV 10 ml BID NOEMI Administration Sodium Chloride 10 ml 01/21/21 15:16 Sodium Chloride 0.9% 10 Ml Flush Syringe IV PRN PRN LINE FLUSH Sodium Chloride 50 ml 01/24/21 15:00 01/26/21 21:22 Sodium Chloride 0.9% 50 Ml Ivpb IV 01/28/21 21:01 50 ml Q24HR@2100 NOEMI Administration Zinc Sulfate 220 mg 01/21/21 22:00 01/27/21 10:06 Zinc Sulfate 220 Mg Cap PO 220 mg BID NOEMI Administration Nutrition/Malnutrition Assess - Dietary Evaluation Nutrition/Malnutrition Findings: Nutrition Notes Start: 01/27/21 08:22 Freq: Status: Active Protocol: Document 01/27/21 08:22 TATO (Rec: 01/27/21 08:23 TATO [id number]) Nutrition Notes Need for Assessment generated from: LOS Initial or Follow up Brief Note Subjective/Other Information Screen for LOS. Pt eating 100% of meals. Nutrition Intervention Revisit per MD consult or patient Sign Off request: - Malnutrition Assessment Minimum of two criteria: No - Attestation Statement I have reviewed and agreed w/ Malnutrition eval & tx plan: Yes
--- NOTE | 2021-01-27 12:03 | Progress Note ---
Assessment and Plan Cultures: SARS CoV2 PCR: Positive 01/21/2021 blood culture: No growth A/P: 40-year-old female with obesity hypoventilation, diabetes, morbid obesity: #Bilateral pneumonia: Secondary to COVID-19. Severe disease. CTA negative for PE. Did not meet criteria for Actrema. #Acute hypoxic respiratory failure: improving/stable on 2 lit/min NC #Morbid obesity Recs: -Continue steroids for 10 days -Remdesivir, D -prophylactic anticoagulation based on d-dimer per hospital protocol -trend ferritin, LDH, d-dimer, CRP every 2-3 days for risk stratification and to assess disease progression -discharge planning, home oxygen evaluation, if she goes home on oxygen, please arrange follow up with PCP/pulmonary to help wean oxygen as outpatient ID will sign off. Please call with questions. Florence Whitaker MD, FACP [facility] O: [phone] F: [phone] Subjective Date of service: 01/27/21 Principal diagnosis: Acute respiratory failure with hypoxia Interval history: No fever. Remains stable on 2 lit/min. Objective - Exam Narrative Exam: Physical Exam (reviewed in chart to minimize risk of transmission) Constitutional: deferred Head, Ears, Nose: deferred Eyes: deferred Neck: deferred Oral: deferred Cardiovascular: deferred Respiratory: deferred GI: deferred Musculoskeletal: deferred Skin: deferred Hem/Lymphatic: deferred Psych: deferred Neurological: deferred - Constitutional Vitals: Vital Signs Temp Pulse Resp BP Pulse Ox 97.2 F L 55 L 20 104/69 100 01/27/21 06:07 01/27/21 06:07 01/27/21 06:07 01/27/21 06:07 01/27/21 07:20 Temperature -Last 24 Hours Temperature 97.2 F Temperature 98.0 F Temperature 98.5 F - Labs CBC & Chem 7: 01/25/21 09:00 01/27/21 06:37 Labs: Abnormal lab results 01/26/21 01/26/21 Range/Units 16:34 21:16 POC Glucose 356 H 348 H (70-105) mg/dL
[2021-01-27] MEDS ORDERED: INSULIN NPH/REGULAR 70/30 INJ SUB-Q ONE (21:15)
[2021-01-27] MEDS: REMDESIVIR 100 MG in SODIUM CHLORIDE 0.9% 250ML 250 ML IV SCH (22:12)
[2021-01-27] MEDS: SODIUM CHLORIDE 0.9% 50 ML IVPB IV SCH (23:00)
[2021-01-28] MEDS: methylPREDNISolone Sod Succinate 40 MG/1 ML INJ IV SCH ×3 (01:52→17:18)
[2021-01-28] MEDS: INSULIN NPH/REGULAR 70/30 INJ SUB-Q SCH ×2 (08:29→17:18)
[2021-01-28] MEDS: INSULIN LISPRO 100 UNIT/ML SUB-Q SCH ×4 (08:29→22:58)
[2021-01-28] MEDS: FAMOTIDINE 20 MG TAB PO SCH ×2 (09:11→22:57)
[2021-01-28] MEDS: ZINC SULFATE 220 MG CAP PO SCH ×2 (09:12→22:57)
[2021-01-28] MEDS: HEPARIN 5,000 UNIT/1 ML VIAL SUB-Q SCH ×2 (09:12→22:58)
[2021-01-28] MEDS: CHOLECALCIFEROL (VIT D3) 1000 UNIT (25 mcg) TAB PO SCH (09:12)
[2021-01-28] MEDS: ASCORBIC ACID 500 MG TAB PO SCH ×2 (09:12→22:57)
--- NOTE | 2021-01-28 09:35 | Progress Note ---
Assessment and Plan Assessment and plan: Assessment and Plan Assessment and plan: Type 2 diabetes mellitus ; Patient is noncompliant with meds and diet for many months Not on medications, check A1c Sugars are high uncontrolled Accu-Chek sliding scale coverage ADA diet Long-acting insulin Novolin 70/30 Diabetic education, diabetic nutrition education Possible home health nurse for disease monitoring at discharge positive COVID-19 test Alvarado PCR test is positive Continue isolation ID consulted Management per COVID-19 protocols. Steroids, remdesivir, Actemra if needed Hypoxia supplemental oxygen evaluation Home O2 evaluation upon discharge Inflammatory markers We will monitor closely and adjust management as needed Plan of care discussed with the patient and her nurse Acute respiratory failure with hypoxia On 6 L nasal cannula oxygen Intermittent BiPAP, wean as tolerated Home O2 evaluation upon discharge Pneumonia On IV antibiotics. Procalcitonin level is low No evidence of pneumonia, DC antibiotics Obesity BMI 52.8. Patient needs weight reduction , diet modification Lifestyle changes , exercise as tolerated and weight reduction ,patient needs bariatric surgery evaluation Patient will be counseled regarding follow-up with Dr. King as outpatient DVT prophylaxis ; Heparin subcu/SCDs Medical noncompliance Patient strongly advised to comply with medications, diet, follow-up visits, home health nurse Closely monitor patient and adjust management as needed Follow alvarado PCR test report, if positive consult ID Plan of care reviewed with the patient and her nurse Brief history; 40 YO Female with Obesity Hypoventilation Syndrome, DM, MO, PCOS, Metabolic Syndrome presents to ED for evaluation. Patient reports "I just cannot breathe". Patient states that she has experienced shortness of breath, decreased exercise tolerance, malaise, body aches over the past 5 days with worsening symptoms over the same timeframe. Patient transported to [facility] via private vehicle for further care and evaluation of the aforementioned symptoms. Patient seen and evaluated in the emergency department. All lab and imaging studies reviewed. Patient found to have a pulse oximetry of 77% on room air with exertion which is consistent with acute hypoxemic respiratory failure. Patient underwent chest x-ray which revealed bilateral pneumonia. Patient admitted to medical floor and initiated on coronavirus protocol as well as pneumonia protocol. Patient denies fever, chills, chest pain, palpitation, productive cough, skin rash, recent ill contacts, unilateral leg swelling, calf pain, individual/family history of DVT/PE/bleeding/blood clotting disorders, or known exposure to COVID-19. No prior admission for review. No medication listed at time of admission for reconciliation. 01/24/2021; admitted as PUI, alvarado PCR test sent, pending report Continue supportive care 01/25/2021; patient's blood sugars are uncontrolled, noncompliant with medications for many years Accu-Chek sliding scale coverage ADA diet, Novolin 70/30 start low and increase as needed Check A1c, home health nurse at discharge, diabetic education and diabetic diet Disposition; closely monitor, follow consultants recommendation, discharged with home health when stable 01/26/2021 patient denies any shortness of breath no chest pain. Patient blood glucose is uncontrolled. Blood glucose is 370. Will increase the Novolin 70/30 30 units twice a day. Diabetic education, diabetic diet and home health nurse at discharge. Respiratory therapist is checking for home oxygen walking oxygen level Disposition when cleared by infectious disease and when the Covid treatment will complete 01/27/21 Patient is doing well. Patient is getting remdesivir day 4 We will continue the steroid for 10 days Blood sugar is better at 348. Continue current management Possible discharge planning in 1 to 2 days when cleared by infectious disease and pulmonary. 01/28/21 Patient is doing well. Patient is getting remdesivir day 5 We will continue the steroid for 10 days Blood sugar is better at 266 Continue current management Possible discharge planning in am. History Interval history: Patient is seen and examined the patient at the bedside this morning Patient's chart and medications reviewed, Covid positive patient on contact and droplet isolation. blood glucose was 266 Patient denied any shortness of breath no cough. Patient is on room air without any difficulty. O2 saturation on walking 92% Vital signs noted Hospitalist Physical - Constitutional Vitals: Temp Pulse Resp BP Pulse Ox 97.6 F 55 L 18 105/70 94 01/28/21 04:49 01/28/21 04:49 01/28/21 04:49 01/28/21 04:49 01/28/21 08:12 General appearance: Present: no acute distress, well-nourished, obese (Morbidly obese) - EENT Eyes: Present: PERRL, EOM intact ENT: hearing intact - Neck Neck: Present: supple, normal ROM - Respiratory Respiratory effort: normal Respiratory: bilateral: diminished - Cardiovascular Rhythm: regular Heart Sounds: Present: S1 & S2 - Extremities Extremities: no ischemia Peripheral Pulses: within normal limits - Abdominal General gastrointestinal: soft, non-tender, non-distended - Integumentary Integumentary: Present: warm, dry - Psychiatric Psychiatric: appropriate mood/affect, memory intact - Neurologic Neurologic: CNII-XII intact, moves all extremities - Allied Health Allied health notes reviewed: nursing HEART Score - HEART Score Troponin: Troponin T 0.046 ng/mL (0.00-0.029) H 01/21/21 11:55 Results - Labs CBC & Chem 7: 01/25/21 09:00 01/27/21 06:37 Labs: Laboratory Last Values WBC 7.2 K/mm3 (4.5-11.0) 01/25/21 09:00 RBC 4.99 M/mm3 (3.65-5.03) 01/25/21 09:00 Hgb 14.5 gm/dl (10.1-14.3) H 01/25/21 09:00 Hct 43.8 % (30.3-42.9) H 01/25/21 09:00 MCV 88 fl (79-97) 01/25/21 09:00 MCH 29 pg (28-32) 01/25/21 09:00 MCHC 33 % (30-34) 01/25/21 09:00 RDW 13.2 % (13.2-15.2) 01/25/21 09:00 Plt Count 352 K/mm3 (140-440) 01/25/21 09:00 Lymph % (Auto) 15.3 % (13.4-35.0) 01/22/21 10:38 Bonner % (Auto) 9.0 % (0.0-7.3) H 01/22/21 10:38 Eos % (Auto) 0.0 % (0.0-4.3) 01/22/21 10:38 Baso % (Auto) 0.6 % (0.0-1.8) 01/22/21 10:38 Lymph # (Auto) 1.5 K/mm3 (1.2-5.4) 01/22/21 10:38 Bonner # (Auto) 0.9 K/mm3 (0.0-0.8) H 01/22/21 10:38 Eos # (Auto) 0.0 K/mm3 (0.0-0.4) 01/22/21 10:38 Baso # (Auto) 0.1 K/mm3 (0.0-0.1) 01/22/21 10:38 Add Manual Diff Complete 01/25/21 09:00 Total Counted 100 01/25/21 09:00 Seg Neutrophils % 75.1 % (40.0-70.0) H 01/22/21 10:38 Seg Neuts % (Manual) 90.0 % (40.0-70.0) H 01/25/21 09:00 Lymphocytes % (Manual) 5.0 % (13.4-35.0) L 01/25/21 09:00 Monocytes % (Manual) 5.0 % (0.0-7.3) 01/25/21 09:00 Nucleated RBC % Not Reportable 01/25/21 09:00 Seg Neutrophils # 7.2 K/mm3 (1.8-7.7) 01/22/21 10:38 Seg Neutrophils # Man 6.5 K/mm3 (1.8-7.7) 01/25/21 09:00 Band Neutrophils # 0.0 K/mm3 01/25/21 09:00 Lymphocytes # (Manual) 0.4 K/mm3 (1.2-5.4) L 01/25/21 09:00 Abs React Lymphs (Man) 0.0 K/mm3 01/25/21 09:00 Monocytes # (Manual) 0.4 K/mm3 (0.0-0.8) 01/25/21 09:00 Eosinophils # (Manual) 0.0 K/mm3 (0.0-0.4) 01/25/21 09:00 Basophils # (Manual) 0.0 K/mm3 (0.0-0.1) 01/25/21 09:00 Metamyelocytes # 0.0 K/mm3 01/25/21 09:00 Myelocytes # 0.0 K/mm3 01/25/21 09:00 Promyelocytes # 0.0 K/mm3 01/25/21 09:00 Blast Cells # 0.0 K/mm3 01/25/21 09:00 WBC Morphology Not Reportable 01/25/21 09:00 Hypersegmented Neuts Not Reportable 01/25/21 09:00 Hyposegmented Neuts Not Reportable 01/25/21 09:00 Hypogranular Neuts Not Reportable 01/25/21 09:00 Smudge Cells Not Reportable 01/25/21 09:00 Toxic Granulation Not Reportable 01/25/21 09:00 Toxic Vacuolation Few 01/25/21 09:00 Dohle Bodies Not Reportable 01/25/21 09:00 Pelger-Huet Anomaly Not Reportable 01/25/21 09:00 Kwame Rods Not Reportable 01/25/21 09:00 Platelet Estimate Consistent w auto 01/25/21 09:00 Clumped Platelets Not Reportable 01/25/21 09:00 Plt Clumps, EDTA Not Reportable 01/25/21 09:00 Large Platelets Not Reportable 01/25/21 09:00 Giant Platelets Not Reportable 01/25/21 09:00 Platelet Satelliting Not Reportable 01/25/21 09:00 Plt Morphology Comment Not Reportable 01/25/21 09:00 RBC Morphology Normal 01/25/21 09:00 Dimorphic RBCs Not Reportable 01/25/21 09:00 Polychromasia Not Reportable 01/25/21 09:00 Hypochromasia Not Reportable 01/25/21 09:00 Poikilocytosis Not Reportable 01/25/21 09:00 Anisocytosis Not Reportable 01/25/21 09:00 Microcytosis Not Reportable 01/25/21 09:00 Macrocytosis Not Reportable 01/25/21 09:00 Spherocytes Not Reportable 01/25/21 09:00 Pappenheimer Bodies Not Reportable 01/25/21 09:00 Sickle Cells Not Reportable 01/25/21 09:00 Target Cells Not Reportable 01/25/21 09:00 Tear Drop Cells Not Reportable 01/25/21 09:00 Ovalocytes Not Reportable 01/25/21 09:00 Helmet Cells Not Reportable 01/25/21 09:00 [place] Bodies Not Reportable 01/25/21 09:00 [place] Rings Not Reportable 01/25/21 09:00 [place] Cells Not Reportable 01/25/21 09:00 Bite Cells Not Reportable 01/25/21 09:00 Crenated Cell Not Reportable 01/25/21 09:00 Elliptocytes Not Reportable 01/25/21 09:00 Acanthocytes (Spur) Not Reportable 01/25/21 09:00 Rouleaux Not Reportable 01/25/21 09:00 Hemoglobin C Crystals Not Reportable 01/25/21 09:00 Schistocytes Not Reportable 01/25/21 09:00 Malaria parasites Not Reportable 01/25/21 09:00 [place] Bodies Not Reportable 01/25/21 09:00 Hem Pathologist Commnt No 01/25/21 09:00 D-Dimer 310.36 ng/mlDDU (0-234) H 01/24/21 18:23 Sodium TNR 01/27/21 06:37 Potassium TNR 01/27/21 06:37 Chloride TNR 01/27/21 06:37 Carbon Dioxide TNR 01/27/21 06:37 Anion Gap TNR 01/27/21 06:37 BUN TNR 01/27/21 06:37 Creatinine TNR 01/27/21 06:37 Estimated GFR TNR 01/27/21 06:37 BUN/Creatinine Ratio TNR 01/27/21 06:37 Glucose TNR 01/27/21 06:37 POC Glucose 266 mg/dL (70-105) H 01/28/21 07:52 Hemoglobin A1c 11.7 % (4-6) H 01/25/21 09:00 Calcium TNR 01/27/21 06:37 Magnesium 2.40 mg/dL (1.7-2.3) H 01/25/21 09:00 Ferritin 596.3 ng/mL (10.0-200.0) H 01/24/21 18:23 Total Bilirubin TNR 01/27/21 06:37 AST TNR 01/27/21 06:37 ALT TNR 01/27/21 06:37 Alkaline Phosphatase TNR 01/27/21 06:37 Lactate Dehydrogenase 461 units/L (91-180) H 01/24/21 18:23 Troponin T 0.046 ng/mL (0.00-0.029) H 01/21/21 11:55 C-Reactive Protein 4.40 mg/dL (0.00-1.30) H 01/24/21 18:23 NT-Pro-B Natriuret Pep 19.46 pg/mL (0-450) 01/21/21 11:55 Total Protein TNR 01/27/21 06:37 Albumin TNR 01/27/21 06:37 Albumin/Globulin Ratio TNR 01/27/21 06:37 Triglycerides 88 mg/dL (2-149) 01/21/21 11:55 Cholesterol 122 mg/dL (50-199) 01/21/21 11:55 LDL Cholesterol Direct 66 mg/dL (50-130) 01/21/21 11:55 HDL Cholesterol 41 mg/dL (40-59) 01/21/21 11:55 Cholesterol/HDL Ratio 2.97 % 01/21/21 11:55 Procalcitonin 0.07 ng/mL (<0.15) 01/21/21 11:55 Coronavirus (PCR) Positive (Negative) A 01/22/21 09:49 Santiago/IV: Voiding Method Toilet Active Medications - Current Medications Current Medications: Generic Name Dose Route Start Last Admin Trade Name Freq PRN Reason Stop Dose Admin Acetaminophen 650 mg 01/21/21 15:16 Acetaminophen 325 Mg Tab PO Q4H PRN Pain MILD(1-3)/Fever >100.5/ALVARADO Albuterol 2.5 mg 01/21/21 15:16 Albuterol 2.5 Mg/3 Ml Nebu IH Q4HRT PRN Shortness Of Breath Ascorbic Acid 500 mg 01/21/21 22:00 01/28/21 09:12 Ascorbic Acid 500 Mg Tab PO 500 mg BID NOEMI Administration Cholecalciferol 1,000 unit 01/22/21 10:00 01/28/21 09:12 Cholecalciferol (Vit D3) 1000 Unit (25 Mcg) Tab PO 1,000 unit QDAY NOEMI Administration Famotidine 20 mg 01/21/21 22:00 01/28/21 09:11 Famotidine 20 Mg Tab PO 20 mg BID NOEMI Administration Heparin Sodium (Porcine) 5,000 unit 01/21/21 22:00 01/28/21 09:12 Heparin 5,000 Unit/1 Ml Vial SUB-Q 5,000 unit Q12HR NOEMI Administration REMDESIVIR 100 mg/ Sodium 250 mls @ 500 mls/hr 01/25/21 21:00 01/27/21 22:42 Chloride IV 01/28/21 21:29 Infused Q24HR@2100 NOEMI Infusion Insulin Human Isoph/Insulin Regular 30 unit 01/26/21 17:00 01/28/21 08:29 Insulin Nph/Regular 70/30 Inj SUB-Q 30 unit BIDDIAB NOEMI Administration Insulin Human Lispro 0 unit 01/25/21 11:30 01/28/21 08:29 Insulin Lispro 100 Unit/Ml SUB-Q 6 unit ACHS NOEMI Administration Protocol Methylprednisolone Sodium Succinate 40 mg 01/21/21 16:00 01/28/21 08:34 Methylprednisolone Sod Succinate 40 Mg/1 Ml Inj IV 40 mg Q8H NOEMI Administration Ondansetron HCl 4 mg 01/21/21 15:16 Ondansetron 4 Mg/2 Ml Inj IV Q8H PRN Nausea And Vomiting Sodium Chloride 10 ml 01/21/21 22:00 01/28/21 09:12 Sodium Chloride 0.9% 10 Ml Flush Syringe IV 10 ml BID NOEMI Administration Sodium Chloride 10 ml 01/21/21 15:16 Sodium Chloride 0.9% 10 Ml Flush Syringe IV PRN PRN LINE FLUSH Sodium Chloride 50 ml 01/24/21 15:00 01/27/21 23:00 Sodium Chloride 0.9% 50 Ml Ivpb IV 01/28/21 21:01 50 ml Q24HR@2100 NOEMI Administration Zinc Sulfate 220 mg 01/21/21 22:00 01/28/21 09:12 Zinc Sulfate 220 Mg Cap PO 220 mg BID NOEMI Administration Nutrition/Malnutrition Assess - Dietary Evaluation Nutrition/Malnutrition Findings: Nutrition Notes Start: 01/27/21 08:22 Freq: Status: Active Protocol: Document 01/27/21 08:22 (Rec: 01/27/21 08:23 [id number]) Nutrition Notes Need for Assessment generated from: LOS Initial or Follow up Brief Note Subjective/Other Information Screen for LOS. Pt eating 100% of meals. Nutrition Intervention Revisit per MD consult or patient Sign Off request: - Malnutrition Assessment Minimum of two criteria: No physical signs of malnutrition - Attestation Statement I have reviewed and agreed w/ Malnutrition eval & tx plan: Yes
[2021-01-28] MEDS: REMDESIVIR 100 MG in SODIUM CHLORIDE 0.9% 250ML 250 ML IV SCH (22:57)
[2021-01-28] MEDS: SODIUM CHLORIDE 0.9% 50 ML IVPB IV SCH (23:30)
[2021-01-29] MEDS: methylPREDNISolone Sod Succinate 40 MG/1 ML INJ IV SCH ×2 (00:51→08:59)
[2021-01-29] MEDS: INSULIN LISPRO 100 UNIT/ML SUB-Q SCH ×2 (08:58→12:40)
[2021-01-29] MEDS: INSULIN NPH/REGULAR 70/30 INJ SUB-Q SCH (08:58)
[2021-01-29] MEDS: FAMOTIDINE 20 MG TAB PO SCH (08:59)
[2021-01-29] MEDS: ASCORBIC ACID 500 MG TAB PO SCH (08:59)
[2021-01-29] MEDS: ZINC SULFATE 220 MG CAP PO SCH (08:59)
[2021-01-29] MEDS: CHOLECALCIFEROL (VIT D3) 1000 UNIT (25 mcg) TAB PO SCH (08:59)
[2021-01-29] MEDS: HEPARIN 5,000 UNIT/1 ML VIAL SUB-Q SCH (08:59)
--- NOTE | 2021-01-29 09:12 | Discharge Summary ---
Providers - Providers Date of Admission: 01/21/21 15:16 Date of discharge: 01/29/21 Attending physician: VITOR STATON MD 01/24/21 06:36 Consult to Physician [CONS] Routine Comment: Consulting Provider: ARIANNA GREENBERG Physician Instructions: Reason For Exam: Possible Covid pneumonia Primary care physician: [employer] ASSISTANT Hospitalization Reason for admission: Bilateral pneumonia secondary to Covid. Acute hypoxic respiratory failure. Condition: Fair Hospital course: History of present illness: 40 YO Female with Obesity Hypoventilation Syndrome, DM, MO, PCOS, Metabolic Syndrome presents to ED for evaluation. Patient reports "I just cannot breathe". Patient states that she has experienced shortness of breath, decreased exercise tolerance, malaise, body aches over the past 5 days with worsening symptoms over the same timeframe. Patient transported to [facility] via p [place] vehicle for further care and evaluation of the aforementioned symptoms. Patient seen and evaluated in the emergency department. All lab and imaging studies reviewed. Patient found to have a pulse oximetry of 77% on room air with exertion which is consistent with acute hypoxemic respiratory failure. Patient underwent chest x-ray which revealed bilateral pneumonia. Patient admitted to medical floor and initiated on coronavirus protocol as well as pneumonia protocol. Patient denies fever, chills, chest pain, palpitation, productive cough, skin rash, recent ill contacts, unilateral leg swelling, calf pain, individual/family history of DVT/PE/bleeding/blood clotting disorders, or known exposure to COVID-19. No prior admission for review. No medication listed at time of admission for reconciliation. Past History Past Medical History: diabetes, other (See HPI) Past Surgical History: Social history: single. denies: smoking, alcohol abuse, prescription drug abuse Family history: diabetes, hypertension Assessment and Plan Assessment and plan: Assessment and Plan Assessment and plan: Type 2 diabetes mellitus ; Patient is noncompliant with meds and diet for many months Not on medications, check A1c Sugars are high uncontrolled Accu-Chek sliding scale coverage ADA diet Long-acting insulin Novolin 70/30 Diabetic education, diabetic nutrition education Possible home health nurse for disease monitoring at discharge positive COVID-19 test Alvarado PCR test is positive Continue isolation ID consulted Management per COVID-19 protocols. Steroids, remdesivir, Actemra if needed Hypoxia supplemental oxygen evaluation Home O2 evaluation upon discharge Inflammatory markers We will monitor closely and adjust management as needed Plan of care discussed with the patient and her nurse Acute respiratory failure with hypoxia On 6 L nasal cannula oxygen Intermittent BiPAP, wean as tolerated Home O2 evaluation upon discharge Pneumonia On IV antibiotics. Procalcitonin level is low No evidence of pneumonia, DC antibiotics Obesity BMI 52.8. Patient needs weight reduction , diet modification Lifestyle changes , exercise as tolerated and weight reduction ,patient needs bariatric surgery evaluation Patient will be counseled regarding follow-up with Dr. King as outpatient DVT prophylaxis ; Heparin subcu/SCDs Medical noncompliance Patient strongly advised to comply with medications, diet, follow-up visits, home health nurse Closely monitor patient and adjust management as needed Follow alvarado PCR test report, if positive consult ID Plan of care reviewed with the patient and her nurse Brief history; 40 YO Female with Obesity Hypoventilation Syndrome, DM, MO, PCOS, Metabolic Syndrome presents to ED for evaluation. Patient reports "I just cannot breathe". Patient states that she has experienced shortness of breath, decreased exercise tolerance, malaise, body aches over the past 5 days with worsening symptoms over the same timeframe. Patient transported to [facility] via private vehicle for further care and evaluation of the aforementioned symptoms. Patient seen and evaluated in the emergency department. All lab and imaging studies reviewed. Patient found to have a pulse oximetry of 77% on room air with exertion which is consistent with acute hypoxemic respiratory failure. Patient underwent chest x-ray which revealed bilateral pneumonia. Patient admit sanjeev to medical floor and initiated on coronavirus protocol as well as pneumonia protocol. Patient denies fever, chills, chest pain, palpitation, productive cough, skin rash, recent ill contacts, unilateral leg swelling, calf pain, individual/family history of DVT/PE/bleeding/blood clotting disorders, or known exposure to COVID-19. No prior admission for review. No medication listed at time of admission for reconciliation. 01/24/2021; admitted as PUI, alvarado PCR test sent, pending report Continue supportive care 01/25/2021; patient's blood sugars are uncontrolled, noncompliant with medications for many years Accu-Chek sliding scale coverage ADA diet, Novolin 70/30 start low and increase as needed Check A1c, home health nurse at discharge, diabetic education and diabetic diet Disposition; closely monitor, follow consultants recommendation, discharged with home health when stable 01/26/2021 patient denies any shortness of breath no chest pain. Patient blood glucose is uncontrolled. Blood glucose is 370. Will increase the Novolin 70/30 30 units twice a day. Diabetic education, diabetic diet and home health nurse at discharge. Respiratory therapist is checking for home oxygen walking oxygen level Disposition when cleared by infectious disease and when the Covid treatment will complete 01/27/21 Patient is doing well. Patient is getting remdesivir day 4 We will continue the steroid for 10 days Blood sugar is better at 348. Continue current management Possible discharge planning in 1 to 2 days when cleared by infectious disease and pulmonary. 01/28/21 Patient is doing well. Patient is getting remdesivir day 5 We will continue the steroid for 10 days Blood sugar is better at 266 Continue current management Possible discharge planning in am. 01/29/21 Patient is doing better. Patient denied any chest pain no shortness of breath no coughing. Patient completed 5 days of remdesivir. We will continue steroid for 5 more days. Discharge the patient home today. Patient was given oxygen. Patient will take the medication as prescribed and follow-up with primary care within a week. Patient instructed if the condition worsen please come back to the ER. Patient instructed to control diabetes and weight reduction. Condition at the time of discharge is stable. Discharge time is spent 30 minutes Disposition: DC-01 TO HOME OR SELFCARE Final Discharge Diagnosis (Prints w/discharge instructions): Acute hypoxic respiratory failure. Bilateral pneumonia due to Covid 19. Morbid obesity Time spent for discharge: 30 Core Measure Documentation - Palliative Care Palliative Care/ Comfort Measures: Not Applicable - Core Measures Any of the following diagnoses?: none Exam - Constitutional Vitals: Temp Pulse Resp BP Pulse Ox 97.3 F L 56 L 20 96/65 100 01/29/21 05:45 01/29/21 05:45 01/29/21 05:45 01/29/21 05:45 01/29/21 05:45 General appearance: Present: no acute distress, well-nourished - EENT Eyes: Present: PERRL ENT: hearing intact, clear oral mucosa - Neck Neck: Present: supple, normal ROM - Respiratory Respiratory effort: normal Respiratory: bilateral: diminished - Cardiovascular Heart Sounds: Present: S1 & S2. Absent: rub, click - Extremities Extremities: pulses symmetrical, No edema Peripheral Pulses: within normal limits - Abdominal General gastrointestinal: Present: soft, non-tender, non-distended, normal bowel sounds Female genitourinary: Present: normal - Integumentary Integumentary: Present: clear, warm, dry - Musculoskeletal Musculoskeletal: gait normal, strength equal bilaterally - Psychiatric Psychiatric: appropriate mood/affect, intact judgment & insight - Neurologic Neurologic: CNII-XII intact, moves all extremities Plan Diet: low fat, low salt, diabetic Follow up with: PRIMARY CARE, [Primary Care Provider] - 3-5 Days Prescriptions: predniSONE [Deltasone] 20 mg PO QDAY 5 Days tab metFORMIN [Glucophage] 500 mg PO QDAY 30 Days tab ALBUTEROL NEB's [Proventil 0.083% NEBS] 2.5 mg IH Q4HRT PRN 20 Days nebu PRN Reason: Shortness Of Breath Ascorbic Acid [Vitamin C] 500 mg PO BID 10 Days tablet Zinc Sulfate 220 mg PO BID 10 Days capsule
[2021-01-29 12:35] VITALS: BP 162/99
== END 2021-01-29 14:15 | disposition home health service (06) | DRG 177 ==
LOC: ED 09:46 → 3A 15:16
PROVIDERS: ADMIT Internal Medicine; ATTEND Hospitalist
PROC: 5A09557 Assistance with Respiratory Ventilation, Greater than 96 Consecutive Hours, Continuous Positive Airway Pressure (ICD-10-PCS; principal; 2021-01-23)
PROC: XW033E5 Introduction of Remdesivir Anti-infective into Peripheral Vein, Percutaneous Approach, New Technology Group 5 (ICD-10-PCS; 2021-01-24)
DX: U07.1 COVID-19 (principal); J96.01 Acute respiratory failure with hypoxia; J12.82 Pneumonia due to coronavirus disease 2019; I21.4 Non-ST elevation (NSTEMI) myocardial infarction; E66.2 Morbid (severe) obesity with alveolar hypoventilation; Z68.43 Body mass index [BMI] 50.0-59.9, adult; E66.9 Obesity, unspecified; Z71.3 Dietary counseling and surveillance; E11.65 Type 2 diabetes mellitus with hyperglycemia; Z83.3 Family history of diabetes mellitus; Z82.49 Family history of ischemic heart disease and other diseases of the circulatory system; Z91.19 Patient's noncompliance with other medical treatment and regimen
CPT/HCPCS: 36415; 71045; 71275; 80048; 80053; 80061; 82728; 82962; 83036; 83615; 83735; 83880; 84145; 84484; 85007; 85025; 85379; 86140; 87040; 93005; 94640; 94660; 96365; G0378; J0456; J0696; J1100; J1644; J1815; J2920; Q9967; U0003